=== PATIENT | male | born 1945 | race American Indian/Alaskan Native ===

== ENCOUNTER 2016-10-26 05:14 | Emergency (ER) | payer MEDICARE ==
[2016-10-26 06:56] VITALS: BP 180/82
--- NOTE | 2016-10-26 07:38 | Emergency Department Report ---
HPI - General Chief Complaint: Medical Clearance Time Seen by Provider: 10/26/16 07:25 - HPI HPI: Room 18 The patient is a 71-year-old male presenting with a chief complaint of left foot pain. The patient states she has a history of gout but has not had an attack in approximately 3 years. The patient states last night at approximate 21:00 developed pain in the dorsum of his left foot and heel consistent with previous gouty arthritis attacks. The patient states he took a Percocet for the pain comes and goes. The patient currently gives his pain a score of 8/10 Location: Left foot Duration: Intermittent since 21:00 last night Quality: Pain Severity: 8/10 Modifying factors: [see above] Context: [see above] Mode of transportation: The patient drove himself to the emergency department and there are no visitors present ED Past Medical Hx - Past Medical History Previous Medical History?: Yes Hx Hypertension: Yes (10 YRS) Hx Diabetes: Yes (10YRS) Hx GERD: Yes Hx Renal Disease: Yes Hx Headaches / Migraines: Yes (MIGRAINES ) - Surgical History Past Surgical History?: Yes Additional Surgical History: FISTULA RIGHT WRIST - Family History Family history: no significant - Social History Smoking Status: Former Smoker (none 2.5 years) Substance Use Type: Alcohol (occasional) - Medications Home Medications: Home Medications Medication Instructions Recorded Confirmed Last Taken Type Allopurinol [Zyloprim] 300 mg PO QDAY 05/17/16 05/28/16 05/27/16 11:00 History Carvedilol [Coreg] 25 mg PO BID 05/17/16 05/28/16 05/28/16 06:00 History Furosemide [Lasix TAB] 40 mg PO BID 05/17/16 05/28/16 05/27/16 11:00 History Gabapentin [Gralise] 300 mg PO QID 05/17/16 05/28/16 05/27/16 11:00 History Insulin NPH, Human [NovoLIN N] 50 unit SQ BID 05/17/16 05/28/16 05/27/16 11:00 History Loperamide [Imodium] 2 mg PO QDAY 05/17/16 05/17/16 Unknown History Metoprolol [Lopressor TAB] 100 mg PO QDAY 05/17/16 05/28/16 05/28/16 06:00 History Pravastatin Sodium [Pravastatin] 40 mg PO QDAY 05/17/16 05/28/16 05/26/16 History Quinapril HCl 40 mg PO QDAY 05/17/16 05/28/16 05/28/16 06:00 History Ranitidine HCl [Heartburn Relief] 150 mg PO QDAY 05/17/16 05/28/16 05/28/16 06: 00 History cloNIDine [Catapres] 0.1 mg PO BID 05/17/16 05/28/16 05/28/16 06:00 History glipiZIDE [Glucotrol] 10 mg PO QDAY 05/17/16 05/28/16 05/27/16 11:00 History Aspirin [Adult Low Dose Aspirin EC] 2 tab PO DAILY 05/28/16 05/28/16 05/27/16 11 :00 History HYDROcodone/APAP 7.5-325 [[place] 1 each PO Q6HR PRN #40 tablet 05/28/16 Unknown Rx 7.5/325] Oxycodone HCl/Acetaminophen 1 each PO Q6HR PRN #50 tablet 05/28/16 Unknown Rx [Percocet 7.5/325 mg] Colchicine 0.6 mg PO QDAY #20 capsule 10/26/16 Unknown Rx predniSONE [Deltasone] 40 mg PO QDAY #10 tab 10/26/16 Unknown Rx ED Review of Systems ROS: Stated complaint: GOUT Other details as noted in HPI Physical Exam - Physical Exam Vital Signs: Vital Signs 10/26/16 10/26/16 05:20 06:47 Temperature 97.4 F L Pulse Rate 83 73 Respiratory 20 20 Rate Blood Pressure 195/96 Blood Pressure 180/82 [Left] O2 Sat by Pulse 100 98 Oximetry ED Course Vital Signs 10/26/16 10/26/16 05:20 06:47 Temperature 97.4 F L Pulse Rate 83 73 Respiratory 20 20 Rate Blood Pressure 195/96 Blood Pressure 180/82 [Left] O2 Sat by Pulse 100 98 Oximetry - Consultations Consultation #1: 10/26/16 07:36 Nephrology paged 10/26/16 07:[address] Mustafa- recommends initiating prednisone 40 mg daily for 5 days and culture seen and having patient follow up in one week. ED Medical Decision Making - Differential Diagnosis gouty arthritis, neuropathy Critical care attestation.: If time is entered above; I have spent that time in minutes in the direct care of this critically ill patient, excluding procedure time. ED Disposition Clinical Impression: Left foot pain, Gouty arthritis, Neuropathy Disposition: DISCHARGED TO HOME OR SELFCARE Is pt being admited?: No Does the pt Need Aspirin: No Condition: Stable Instructions: Arthralgia (ED) Additional Instructions: Return to the emergency department immediately should you develop worsening symptoms, fever, inability to tolerate food or liquid or any other concerns. Prescriptions: Colchicine 0.6 mg PO QDAY #20 capsule predniSONE [Deltasone] 40 mg PO QDAY #10 tab Referrals: PRIMARY CARE, [Primary Care Provider] - 3-5 Days OLVIN OLMSTEAD MD [Staff Physician] - 3-5 Days Time of Disposition: 07:55
[2016-10-26] MEDS ORDERED: DELTASONE PO ONE (07:51)
[2016-10-26] MEDS ORDERED: COLCRYS PO ONE (08:30)
== END 2016-10-26 08:20 | disposition home or self-care (01) ==
LOC: ED 05:14
DX: M79.672 Pain in left foot (principal); M10.9 Gout, unspecified; G62.9 Polyneuropathy, unspecified; I10 Essential (primary) hypertension; E11.9 Type 2 diabetes mellitus without complications; G43.909 Migraine, unspecified, not intractable, without status migrainosus; N28.9 Disorder of kidney and ureter, unspecified; Z87.891 Personal history of nicotine dependence; Z79.82 Long term (current) use of aspirin
CPT/HCPCS: 99283; J7512

== ENCOUNTER 2016-11-26 14:48 | Outpatient (CLI) | payer MEDICARE ==
--- NOTE | 2016-11-26 15:45 | XRay Report ---
Chest 2 views. Findings: The heart is mildly enlarged with normal pulmonary vascularity. The lungs are clear. There is mild elevation of the right hemidiaphragm. There is uncoiling of the thoracic aorta. No pleural fluid is seen. Impression: No acute cardiopulmonary findings.
== END 2016-11-26 14:49 | disposition home or self-care (01) ==
LOC: XRAY 14:48
PROVIDERS: ATTEND Internal Medicine Nephrology
DX: N18.5 Chronic kidney disease, stage 5 (principal); I51.7 Cardiomegaly; Q79.1 Other congenital malformations of diaphragm
CPT/HCPCS: 71020

== ENCOUNTER 2016-12-13 10:29 | Outpatient (CLI) | payer MEDICARE ==
--- NOTE | 2016-12-13 17:10 | Vascular Lab Report ---
FISTULA DUPLEX EXAM: REASON FOR EXAM: AVF malfunction with ESRD. NOTE: THE FISTULA IS LOCATED IN THE right UPPER EXTREMITY. COMMENTS ON THE FISTULA: This is a radial artery inflow to cephalic vein outlflow fistula. Morphologicaly, there is no large pseudoaneurysms. There is high just proximal to the anastomosis velocity gradient to suggest focal stenosis. COMMENTS ON THE INFLOW: The inflow velocity is 5 98 cm/s which is high. The radial artery is 228 cm/s which is adequate. COMMENTS ON THE OUTFLOW: The venous outflow is 144 cm/s which is adequate. The volume is 322- 772 mL/min which is marginal to within normal limits. IMPRESSION: Focal stenosis noted just proximal to the anastomosis. This may represent a retained valve.. The volume passing through the fistula is marginal. Consider fistulogram with balloon angioplasty to correct for retained valve
== END 2016-12-13 10:30 | disposition home or self-care (01) ==
LOC: VAS 10:29
PROVIDERS: ATTEND Radiology Diagnostic Radiology
DX: I12.0 Hypertensive chronic kidney disease with stage 5 chronic kidney disease or end stage renal disease (principal); N18.6 End stage renal disease; E11.21 Type 2 diabetes mellitus with diabetic nephropathy; T82.590D Other mechanical complication of surgically created arteriovenous fistula, subsequent encounter; I70.8 Atherosclerosis of other arteries
CPT/HCPCS: 93990

== ENCOUNTER 2017-02-05 09:28 | Day surgery (SDC) | payer MEDICARE ==
[~2017-02-05 09:28] MED LIST: ANCEF/STERILE WATER 2 GM/20 ML 2 GM/20 ML SYRINGE IV NR; NACL 0.9% 1000 ML 1,000 ML IV SCH
[2017-02-05] MEDS ORDERED: ROBINUL ONE (09:30)
[2017-02-05] MEDS ORDERED: SUBLIMAZE ONE (09:36)
[2017-02-05] MEDS ORDERED: XYLOCAINE MPF 2% ONE (09:37)
[2017-02-05] MEDS ORDERED: DECADRON ONE (09:37)
[2017-02-05] MEDS ORDERED: ZOFRAN ONE (09:37)
[2017-02-05] MEDS ORDERED: DIPRIVAN 10 MG/ML IV ONE (09:37)
[2017-02-05] MEDS ORDERED: NACL 0.9% 100 ML ONE (09:38)
[2017-02-05] MEDS ORDERED: NEO SYNEPHRINE ONE (09:38)
[2017-02-05] MEDS ORDERED: PEPCID PO NR (10:00)
[2017-02-05] MEDS ORDERED: HEPARIN 10,000 UNITS/10 ML ONE (10:54)
[2017-02-05] MEDS ORDERED: MARCAINE 0.5% 30 ML INFILTRATI ONE (10:54)
[2017-02-05] MEDS ORDERED: NACL P/F VIAL (10 ML) 0 ML ONE (10:54)
[2017-02-05] MEDS ORDERED: NACL 0.9% 500 ML 500 ML ONE (10:54)
[2017-02-05] MEDS ORDERED: RIFADIN ONE (10:54)
[2017-02-05] MEDS ORDERED: D50W (25GM) IV ONE (11:09)
--- NOTE | 2017-02-05 11:11 | Anesthesia Consultation ---
Anesthesia Consult and Med Hx Date of service: 02/05/17 - Airway Anesthetic Teeth Evaluation: Partials ROM Head & Neck: Adequate Mental/Hyoid Distance: Inadequate Mallampati Class: Class III Intubation Access Assessment: Possibly Difficult - Pulmonary Exam CTA: Yes - Cardiac Exam Cardiac Exam: RRR - Pre-Operative Health Status ASA Pre-Surgery Classification: ASA3 Proposed Anesthetic Plan: General - Pulmonary Hx Smoking: Yes (CIGARETTES 1 PPD FOR 50 YRS, QUIT IN 2013) Hx Sleep Apnea: Yes - Cardiovascular System Hx Hypertension: Yes (10 YRS, DR. PLATT- PCP) Hx Peripheral Vascular Disease: Yes (smoking and DM related) - Central Nervous System Hx Neuromuscular Disorder: Yes (neuropathy R>L) Hx Psychiatric Problems: No - Gastrointestinal Hx Gastroesophageal Reflux Disease: Yes (controlled with meds) - Endocrine Hx Renal Disease: Yes (CKD stage 4) Hx End Stage Renal Disease: Yes Hx Liver Disease: No Hx Insulin Dependent Diabetes: Yes - Hematic Hx Anemia: Yes (GETS IRON INJECTIONS) Hx Sickle Cell Disease: No - Other Systems Hx Alcohol Use: Yes (BEER) Hx Substance Use: No Hx Cancer: Yes (PROSTATE ) Hx Obesity: No
--- NOTE | 2017-02-05 11:12 | Anesthesia Day of Surgery ---
Anesthesia Day of Surgery - Day of Surgery Patient Examined: Yes Patient H&P Reviewed: Yes Patient is NPO: Yes Beta Blockers: Yes
[2017-02-05] MEDS ORDERED: VERSED ONE (11:13)
[2017-02-05 11:34] LABS: Basophils % (Auto) 0.2 % (0.0-1.8); Eosinophils % (Auto) 3.8 % (0.0-4.3); Hematocrit 34.9 % (35.5-45.6); Hemoglobin 10.8 gm/dl (11.8-15.2); Mean Corpuscular HGB Conc 31 % (32-34); Mean Corpuscular Hemoglobin 31 pg (28-32); Mean Corpuscular Volume 100 fl (84-94); Platelet Count 219 K/mm3 (140-440); Red Cell Distribution Width 18.6 % (13.2-15.2); White Blood Count 12.1 K/mm3 (4.5-11.0)
[2017-02-05 11:45] LABS: BUN/Creatinine Ratio 7.64; Calcium 8.9 mg/dL (8.4-10.2); Chloride 98.6 mmol/L (98-107); Potassium 4.7 mmol/L (3.6-5.0)
[2017-02-05] MEDS ORDERED: HEPARIN 10,000 UNITS/10 ML 2,000 UNIT in NACL 0.9% 500 ML 500 ML IR ONE (12:22)
[2017-02-05] MEDS ORDERED: MARCAINE 0.5% INFILTRATI ONE ×2 (12:22)
[2017-02-05] MEDS ORDERED: NACL 0.9% IR ONE (12:22)
--- NOTE | 2017-02-05 13:41 | Operative Report ---
Operative Report Operative Report: Date of Procedure: 02/05/2017 Pre-operative Diagnosis: Complications of Dialysis Access Post-operative Diagnosis: Same Procedure(s): 1. Revision with Elevation of Right Usha Fistula With Bovine Patch Angioplasty Surgeon: Woody Borrero M.D. Horticulturalist: Kulwinder Anesthesia: Gen. endotracheal anesthesia EBL: Minimal Counts: Correct Complications: None Condition: Stable Findings: Successful revision of arterial inflow of right Usha fistula with significantly improved thrill in the fistula. Specimen: None Indication: The patient is 71-year-old male with a history of end-stage renal disease currently on hemodialysis through a permacath. He creation of a right Usha fistula and has had multiple endovascular procedures performed however it is unable to be accessed secondary to his depth as well as a stenosis just distal to the arterial anastomosis. He is in need of revision of the fistula as well as elevation. He was given the risks, benefits, and alternative procedures and consented to procedure. Description of Procedure: The patient was brought to the operating room and laid in supine position. After general endotracheal anesthesia was achieved his right arm was prepped and draped in normal sterile fashion. Longitudinal incision was created from the arterial anastomosis to the mid forearm centered over the fistula. The fistula was dissected out circumferentially ensuring to suture ligate and divide all side branches. I then used an angled DeBakey clamp to clamp the venous outflow as well as the arterial inflow just distal to the anastomosis using an 11 blade and Gayle scissors to open the fistula across a thickened area with stenosis. I then closed the venotomy using a bovine pericardial patch and 2 6-0 Prolene in running fashion. After closure I released the clamps off full in the fistula which had an excellent thrill. I then created a subcutaneous flap, just below the dermal layer, on the medial aspect of the incision. I'll keep hemostasis within the wound using quick clot. The wound was administered as a Marcaine. I then placed a fistula within the subcutaneous flap and then closed the incision in 2 layers using 3-0 Vicryl running fashion and the deep dermal layer and an a 4 Monocryl in a running fashion subcuticular. The wound was then dressed with Dermabond. The patient tolerated the procedure well. All sponge, needle, and history counts were correct. The patient was taken to the recovery area in stable condition.
--- NOTE | 2017-02-05 13:45 | Short Stay Summary ---
Short Stay Documentation Date of service: 02/05/17 Narrative H&P: See H&P - History H&P: obtained from office - Allergies and Medications Current Medications: Allergies atorvastatin calcium [From Lipitor] Allergy (Verified 05/17/16 15:47) muscle stiffness Home Medications Medication Instructions Recorded Confirmed Last Taken Type Allopurinol [Zyloprim] 300 mg PO QDAY 05/17/16 02/05/17 02/04/17 History Furosemide [Lasix TAB] 40 mg PO BID 05/17/16 02/05/17 02/04/17 History Gabapentin [Gralise] 600 mg PO QDAY 05/17/16 02/05/17 02/04/17 History Metoprolol [Lopressor TAB] 50 mg PO BID 05/17/16 02/05/17 02/05/17 History Ranitidine HCl [Heartburn Relief] 150 mg PO BID 05/17/16 02/05/17 02/04/17 History glipiZIDE [Glucotrol] 10 mg PO BID 05/17/16 02/05/17 02/04/17 History Insulin Detemir [Levemir Flextouch] 30 unit SQ BID 01/31/17 02/05/17 02/04/17 History Sertraline [Zoloft] 50 mg PO QDAY 01/31/17 02/05/17 02/04/17 History Vit B Cplx #11/FA/C/Biot/Zn Ox 1 each PO QDAY 01/31/17 02/05/17 02/04/17 History [Dialyvite with Zinc Tablet] amLODIPine [Norvasc] 5 mg PO DAILY 01/31/17 02/05/17 02/04/17 History Active Medications Famotidine (Pepcid) 20 mg PO PREOP NR Stop: 02/05/17 23:00 Last Admin: 02/05/17 11:26 Dose: 20 mg Cefazolin Sodium (Ancef/Sterile Water 2 Gm/20 Ml) 2 gm in 20 mls @ 80 mls/hr IV PREOP NR PRN Reason: Protocol Stop: 02/05/17 23:59 Sodium Chloride (Nacl 0.9% 1000 Ml) 1,000 mls @ 42 mls/hr IV DIRECT GOLDIE Stop: 02/05/17 23:59 Last Admin: 02/05/17 11:26 Dose: 42 mls/hr - Brief post op/procedure progress note Date of procedure: 02/05/17 Pre-op diagnosis: Complications of Dialysis Access Post-op diagnosis: same Procedure: 1. Revision with Elevation of Right Usha Fistula With Bovine Patch Angioplasty Anesthesia: JEET Surgeon: BIANKA GRIFFIN Estimated blood loss: minimal Pathology: none Condition: stable - Disposition Condition at discharge: Good Short Stay Discharge Plan Activity: other (no heavy lifting with left arm) Wound: open to air, keep clean and dry, other (okay to wash the wound with soap and water but do not soak in water) Follow up with: BIANKA GRIFFIN MD [Staff Physician] - 14 Days Prescriptions: HYDROcodone/APAP 7.5-325 [[place] 7.5/325] 1 each PO Q6HR PRN #60 tablet PRN Reason: Pain
--- NOTE | 2017-02-05 13:47 | Post Anesthesia Evaluation ---
- Post Anesthesia Evaluation Patient Participated: Yes Airway Patent: Yes Stable Respiratory Function: Yes Nausea/Vomiting: No Temp > 96.8F: Yes Pain Manageable: Yes Adequeate Hydration: Yes Anesthesia Complications: No Block Receding Appropriately: Not Applicable Patient on Ventilator: No
[2017-02-05 14:26] VITALS: BP 150/68
== END 2017-02-05 14:45 | disposition home or self-care (01) ==
LOC: OR 09:28
PROVIDERS: ATTEND Surgery Vascular Surgery
DX: T82.858A Stenosis of other vascular prosthetic devices, implants and grafts, initial encounter (principal); E11.22 Type 2 diabetes mellitus with diabetic chronic kidney disease; I12.0 Hypertensive chronic kidney disease with stage 5 chronic kidney disease or end stage renal disease; N18.6 End stage renal disease; K21.9 Gastro-esophageal reflux disease without esophagitis; D64.9 Anemia, unspecified; E11.40 Type 2 diabetes mellitus with diabetic neuropathy, unspecified; Z87.891 Personal history of nicotine dependence; Z72.89 Other problems related to lifestyle; Z85.46 Personal history of malignant neoplasm of prostate; Z88.8 Allergy status to other drugs, medicaments and biological substances; Z79.4 Long term (current) use of insulin; Z79.899 Other long term (current) drug therapy; Y83.2 Surgical operation with anastomosis, bypass or graft as the cause of abnormal reaction of the patient, or of later complication, without mention of misadventure at the time of the procedure
CPT/HCPCS: 36415; 36832; 80048; 82962; 85025; C1768; J0690; J1100; J1644; J2250; J2370; J2405; J2704; J3010; J7030; J7040; J3490

== ENCOUNTER 2018-09-23 15:48 | Emergency (ER) | payer MEDICARE ==
--- NOTE | 2018-09-23 17:01 | Emergency Department Report ---
ED Lower Extremity HPI - General Chief Complaint: Wound/Laceration Stated Complaint: TOES BLEEDING FROM EMPUTATION Time Seen by Provider: 09/23/18 16:39 Source: patient Mode of arrival: Ambulatory Limitations: No Limitations - History of Present Illness Initial Comments: This is a 73-year-old gentleman whom I have evaluated in the past. Patient typically gets dialysis Saturday, Saturday, Saturday. He last received dialysis yesterday, and reports it was of normal length and duration. He has a distant history of right toe amputations, secondary to neuropathy, and reports that these amputations were done last year, December He reports that today, he said bloody serosanguineous discharge which is painless from the medial superior aspect of the right foot. There is minimal surrounding redness. There is no streaking. No fevers or chills. No trauma. He is concerned that he may have an infection. He contacted his private residential mental health worker, and he indicated they could follow him up tomorrow morning. He denies other complaints. MD Complaint: other -: Gradual, hour(s) Injury: Foot: Right Type of Injury: unknown Worsens With: nothing Associated Symptoms: ambulatory - Related Data Home Medications Medication Instructions Recorded Confirmed Last Taken Allopurinol [Zyloprim] 300 mg PO QDAY 05/17/16 02/05/17 02/04/17 Furosemide [Lasix TAB] 40 mg PO BID 05/17/16 02/05/17 02/04/17 Gabapentin [Gralise] 600 mg PO QDAY 05/17/16 02/05/17 02/04/17 Metoprolol [Lopressor TAB] 50 mg PO BID 05/17/16 02/05/17 02/05/17 Ranitidine HCl [Heartburn Relief] 150 mg PO BID 05/17/16 02/05/17 02/04/17 glipiZIDE [Glucotrol] 10 mg PO BID 05/17/16 02/05/17 02/04/17 B Complex 11/Folic/C/Biot/Zinc 1 each PO QDAY 01/31/17 02/05/17 02/04/17 [Dialyvite with Zinc Tablet] Insulin Detemir [Levemir Flextouch] 30 unit SQ BID 01/31/17 02/05/17 02/04/17 Sertraline [Zoloft] 50 mg PO QDAY 01/31/17 02/05/17 02/04/17 amLODIPine [Norvasc] 5 mg PO DAILY 01/31/17 02/05/17 02/04/17 Previous Rx's Medication Instructions Recorded Last Taken Type HYDROcodone/APAP 7.5-325 [[place] 1 each PO Q6HR PRN #60 tablet 02/05/17 Unknown Rx 7.5/325] Clindamycin HCl 300 mg PO Q6HR #20 capsule 09/23/18 Unknown Rx Allergies Allergy/AdvReac Type Severity Reaction Status Date / Time atorvastatin calcium Allergy muscle Verified 05/17/16 15:47 [From Lipitor] stiffness ED Review of Systems ROS: Stated complaint: TOES BLEEDING FROM EMPUTATION Other details as noted in HPI Constitutional: denies: fever Eyes: denies: eye discharge Respiratory: denies: cough Cardiovascular: denies: chest pain Genitourinary: denies: dysuria Musculoskeletal: denies: arthralgia, myalgia Skin: change in color Neurological: denies: weakness ED Past Medical Hx - Past Medical History Previous Medical History?: Yes Hx Hypertension: Yes (10 YRS, DR. PLATT- PCP) Hx Diabetes: Yes (FOR 10YRS) Hx Deep Vein Thrombosis: Yes (RIGHT LEG IN 2013 AND 2001) Hx GERD: Yes Hx Liver Disease: No Hx Renal Disease: Yes (CKD stage 4) Hx Sickle Cell Disease: No Hx Headaches / Migraines: Yes (MIGRAINES ) Hx HIV: No - Surgical History Past Surgical History?: Yes Additional Surgical History: FISTULA RIGHT WRIST. 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/2017 - Social History Smoking Status: Former Smoker Substance Use Type: Alcohol - Medications Home Medications: Home Medications Medication Instructions Recorded Confirmed Last Taken Type Allopurinol [Zyloprim] 300 mg PO QDAY 05/17/16 02/05/17 02/04/17 History Furosemide [Lasix TAB] 40 mg PO BID 05/17/16 02/05/17 02/04/17 History Gabapentin [Gralise] 600 mg PO QDAY 05/17/16 02/05/17 02/04/17 History Metoprolol [Lopressor TAB] 50 mg PO BID 05/17/16 02/05/17 02/05/17 History Ranitidine HCl [Heartburn Relief] 150 mg PO BID 0902/05/17 02/04/17 History glipiZIDE [Glucotrol] 10 mg PO BID 05/17/16 02/05/17 02/04/17 History B Complex 11/Folic/C/Biot/Zinc 1 each PO QDAY 01/31/17 02/05/17 02/04/17 History [Dialyvite with Zinc Tablet] Insulin Detemir [Levemir Flextouch] 30 unit SQ BID 01/31/17 02/05/17 02/04/17 History Sertraline [Zoloft] 50 mg PO QDAY 01/31/17 02/05/17 02/04/17 History amLODIPine [Norvasc] 5 mg PO DAILY 01/31/17 02/05/17 02/04/17 History HYDROcodone/APAP 7.5-325 [[place] 1 each PO Q6HR PRN #60 tablet 02/05/17 Unknown Rx 7.5/325] Clindamycin HCl 300 mg PO Q6HR #20 capsule 09/23/18 Unknown Rx ED Physical Exam - General Limitations: No Limitations General appearance: alert, in no apparent distress - Head Head exam: Present: atraumatic, normocephalic - Eye Eye exam: Present: normal appearance, EOMI. Absent: nystagmus - ENT ENT exam: Present: normal exam, normal orophraynx, mucous membranes moist, normal external ear exam - Neck Neck exam: Present: normal inspection, full ROM. Absent: tenderness, meningismus - Respiratory Respiratory exam: Present: normal lung sounds bilaterally. Absent: respiratory distress - Cardiovascular Cardiovascular Exam: Present: regular rate, normal rhythm, normal heart sounds. Absent: bradycardia, tachycardia, irregular rhythm, systolic murmur, diastolic murmur, rubs, gallop - GI/Abdominal GI/Abdominal exam: Present: soft. Absent: distended, tenderness, guarding, rebound, rigid, pulsatile mass - Rectal Rectal exam: Present: deferred - Extremities Exam Extremities exam: Present: normal inspection, other (there is a right distal dorsal wrist dialysis access graft, with no redness, pus or streaking. On the dorsal medial aspect of the right foot, there is minimal erythema, with no streaking or crepitus. There is fluctuance noted on the anterior medial aspect of the right foot, and it is draining seropurulent discharge.). Absent: tenderness - Back Exam Back exam: Present: normal inspection, full ROM. Absent: tenderness, CVA tenderness (R), paraspinal tenderness, vertebral tenderness - Neurological Exam Neurological exam: Present: alert, other (Extraocular movements intact. Tongue midline. No facial droop. Facial sensation intact to light touch in the V1, V2, V3 distribution bilaterally. 5 and 5 strength in 4 extremities.. Sensation is intact to light touch in 4 extremities.). Absent: motor sensory deficit - Psychiatric Psychiatric exam: Present: normal affect, normal mood - Skin Skin exam: Present: warm, erythema ED Course Vital Signs 09/23/18 09/23/18 15:49 16:52 Temperature 97.4 F L Pulse Rate 68 Respiratory 18 18 Rate Blood Pressure 132/67 O2 Sat by Pulse 98 99 Oximetry - Reevaluation(s) Reevaluation #1: 09/23/18 17:04 Differential diagnosis, including but not limited to, cellulitis, abscess Assessment and plan: 73-year-old gentleman with dorsal foot cellulitis, and evidence of seropurulent discharge, already draining. Patient is afebrile with reassuring vital signs. Gentle manual pressure was applied to the fluctuant area of the foot, and approximately 10-15 mL of pus was expressed. Nursing team will reapply wound care dressing, discuss wound care instructions with the patient, and we will start him on clindamycin. He is afebrile with reassuring vital signs, and reports she has the ability to follow up with his outpatient residential mental health worker in the next few days. He reports that he is reliable to follow-up. Return precautions have been reviewed. Patient is appropriate for trial of oral outpatient antibiotic therapy, close outpatient follow-up with his private residential mental health worker. He is not clinically fluid overloaded or volume overloaded, and his physical exam is not consistent with compartment syndrome or lymphangitis. ED Lower Extremity MDM - Lab Data Vital Signs 09/23/18 09/23/18 15:49 16:52 Temperature 97.4 F L Pulse Rate 68 Respiratory 18 18 Rate Blood Pressure 132/67 O2 Sat by Pulse 98 99 Oximetry Critical care attestation.: If time is entered above; I have spent that time in minutes in the direct care of this critically ill patient, excluding procedure time. ED Disposition Clinical Impression: Cellulitis of right foot Disposition: DC-01 TO HOME OR SELFCARE Is pt being admited?: No Does the pt Need Aspirin: No Condition: Good Instructions: Cellulitis (ED) Additional Instructions: Continue outpatient medications. Take the antibiotics as directed. Inspect foot wound at least once every 8-12 hours on a daily basis. Keep dry and covered. Wound may be washed with gentle soap and water once to twice daily. Follow-up with your private residential mental health worker within the next 3-5 days for repeat checkup/evaluation. Alternatively, patient may follow-up with the listed general surgeon, or wound care center for outpatient follow-up. Return to the ER right away with worsening redness, streaking, fevers, chills, lethargy, severe pain, new, worsening or different symptoms. Referrals: COBY GUDINO MD [Staff Physician] - 3-5 Days [facility] [Outside] - 3-5 Days
[2018-09-23] MEDS ORDERED: CLEOCIN PO ONE (17:06)
[2018-09-23 17:19] VITALS: BP 130/67
== END 2018-09-23 17:17 | disposition home or self-care (01) ==
LOC: ED 15:48
DX: L03.115 Cellulitis of right lower limb (principal); I10 Essential (primary) hypertension; E11.9 Type 2 diabetes mellitus without complications; K21.9 Gastro-esophageal reflux disease without esophagitis; G43.909 Migraine, unspecified, not intractable, without status migrainosus; Z87.891 Personal history of nicotine dependence; Z88.8 Allergy status to other drugs, medicaments and biological substances

== ENCOUNTER 2019-01-29 11:10 | Observation (INO) | payer MEDICARE ==
--- NOTE | 2019-01-29 11:19 | Emergency Department Report ---
ED Shortness of Breath HPI - General Stated Complaint: CHEST PAIN Time Seen by Provider: 01/29/19 11:15 - History of Present Illness Initial Comments: Patient is a 73-year-old male presents to emergency room with complaints of shortness of breath and chest pain. Patient states he was also palpitations. Patient states he felt like his heart was beating out of his chest. EMS brought the patient to the ER. EMS states that he was in SVT and they gave 6 of adenosine and his rhythm converted. Patient states after they give that medication all the symptoms resolved. MD Complaint: shortness of breath -: Sudden Severity: severe Consistency: now resolved Improves With: oxygen, medication Worsens With: exertion, movement, inspiration Associated Symptoms: chest pain, palpitations Treatments Prior to Arrival: oxygen, other (adenosine) - Related Data Home Oxygen Therapy: No Home Medications Medication Instructions Recorded Confirmed Last Taken Allopurinol [Zyloprim] 300 mg PO QDAY 05/17/16 01/29/19 02/04/17 Furosemide [Lasix TAB] 40 mg PO BID 05/17/16 01/29/19 02/04/17 Ranitidine HCl [Heartburn Relief] 150 mg PO BID 05/17/16 01/29/19 02/04/17 B Complex 11/Folic/C/Biot/Zinc 1 each PO QDAY 01/31/17 01/29/19 02/04/17 [Dialyvite with Zinc Tablet] Sertraline [Zoloft] 50 mg PO QDAY 01/31/17 01/29/19 02/04/17 Clopidogrel [Plavix] 75 mg PO QDAY 01/29/19 01/29/19 Unknown Ergocalciferol (Vitamin D2) 2,000 unit PO DAILY 01/29/19 01/29/19 Unknown [Vitamin D2] Metoprolol [Lopressor] 25 mg PO BID 01/29/19 01/29/19 Unknown Pravastatin [Pravachol] 40 mg PO DAILY 01/29/19 01/29/19 Unknown Pregabalin [Lyrica] 50 mg PO BID 01/29/19 01/29/19 Unknown amLODIPine [Norvasc] 10 mg PO DAILY 01/29/19 01/29/19 Unknown Allergies Allergy/AdvReac Type Severity Reaction Status Date / Time atorvastatin calcium Allergy muscle Verified 05/17/16 15:47 [From Lipitor] stiffness ED Review of Systems ROS: Stated complaint: CHEST PAIN Other details as noted in HPI Constitutional: denies: chills, fever Eyes: denies: eye pain, eye discharge, vision change ENT: denies: ear pain, throat pain Respiratory: shortness of breath, SOB with exertion, SOB at rest. denies: cough, wheezing Cardiovascular: chest pain, palpitations, dyspnea on exertion Endocrine: no symptoms reported Gastrointestinal: denies: abdominal pain, nausea, diarrhea Genitourinary: denies: urgency, dysuria Musculoskeletal: denies: back pain, joint swelling, arthralgia Skin: denies: rash, lesions Neurological: denies: headache, weakness, paresthesias Psychiatric: denies: anxiety, depression Hematological/Lymphatic: denies: easy bleeding, easy bruising ED Past Medical Hx - Past Medical History Previous Medical History?: Yes Hx Hypertension: Yes (10 YRS, DR. PLATT- PCP) Hx Diabetes: Yes (FOR 10YRS) Hx Deep Vein Thrombosis: Yes (RIGHT LEG IN 2013 AND 2001) Hx GERD: Yes Hx Liver Disease: No Hx Renal Disease: Yes (CKD stage 4) Hx Sickle Cell Disease: No Hx Headaches / Migraines: Yes (MIGRAINES ) Hx HIV: No - Surgical History Additional Surgical History: FISTULA RIGHT WRIST. 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/2017 - Social History Smoking Status: Former Smoker Substance Use Type: Alcohol - Medications Home Medications: Home Medications Medication Instructions Recorded Confirmed Last Taken Type Allopurinol [Zyloprim] 300 mg PO QDAY 05/17/16 01/29/19 02/04/17 History Furosemide [Lasix TAB] 40 mg PO BID 05/17/16 01/29/19 02/04/17 History Ranitidine HCl [Heartburn Relief] 150 mg PO BID 05/17/16 01/29/19 02/04/17 History B Complex 11/Folic/C/Biot/Zinc 1 each PO QDAY 01/31/17 01/29/19 02/04/17 History [Dialyvite with Zinc Tablet] Sertraline [Zoloft] 50 mg PO QDAY 01/31/17 01/29/19 02/04/17 History Clopidogrel [Plavix] 75 mg PO QDAY 01/29/19 01/29/19 Unknown History Ergocalciferol (Vitamin D2) 2,000 unit PO DAILY 01/29/19 01/29/19 Unknown History [Vitamin D2] Metoprolol [Lopressor] 25 mg PO BID 01/29/19 01/29/19 Unknown History Pravastatin [Pravachol] 40 mg PO DAILY 01/29/19 01/29/19 Unknown History Pregabalin [Lyrica] 50 mg PO BID 01/29/19 01/29/19 Unknown History amLODIPine [Norvasc] 10 mg PO DAILY 01/29/19 01/29/19 Unknown History ED Physical Exam - General General appearance: alert, in no apparent distress - Head Head exam: Present: atraumatic, normocephalic - Eye Eye exam: Present: normal appearance, PERRL Pupils: Present: normal accommodation - ENT ENT exam: Present: mucous membranes moist - Neck Neck exam: Present: normal inspection - Respiratory Respiratory exam: Present: normal lung sounds bilaterally. Absent: respiratory distress - Cardiovascular Cardiovascular Exam: Present: regular rate, normal rhythm. Absent: bradycardia, tachycardia, systolic murmur, diastolic murmur, rubs, gallop - GI/Abdominal GI/Abdominal exam: Present: soft, normal bowel sounds. Absent: distended, tenderness, guarding, rebound - Rectal Rectal exam: Present: deferred - Extremities Exam Extremities exam: Present: normal inspection - Back Exam Back exam: Present: normal inspection - Neurological Exam Neurological exam: Present: alert, oriented X3 - Psychiatric Psychiatric exam: Present: normal affect, normal mood - Skin Skin exam: Present: warm, dry, intact, normal color. Absent: rash ED Course Vital Signs 01/29/19 01/29/19 01/29/19 11:17 11:21 12:20 Temperature 97.8 F Pulse Rate 84 81 Respiratory 13 13 22 Rate Blood Pressure 141/77 147/79 Blood Pressure 141/77 [Left] O2 Sat by Pulse 98 98 Oximetry 01/29/19 01/29/19 01/29/19 12:30 12:46 13:00 Temperature Pulse Rate 77 74 71 Respiratory 12 16 13 Rate Blood Pressure 147/79 142/81 154/82 Blood Pressure [Left] O2 Sat by Pulse 100 100 100 Oximetry 01/29/19 01/29/19 01/29/19 13:15 13:30 13:45 Temperature Pulse Rate 71 66 65 Respiratory 19 10 L 12 Rate Blood Pressure 143/79 150/79 142/78 Blood Pressure [Left] O2 Sat by Pulse 100 99 99 Oximetry 01/29/19 14:00 Temperature Pulse Rate 64 Respiratory 11 L Rate Blood Pressure 145/80 Blood Pressure [Left] O2 Sat by Pulse 99 Oximetry - Reevaluation(s) Reevaluation #1: Patient Resting. Patient denies chest pain/shortness of breath. Patient on phototypesetting equipment monitor. Patient's heart rate normal. 01/29/19 11:50 Discussed all results with patient. Patient will be admitted to the hospitalist service. Patient agrees to plan of care. 01/29/19 12:12 - Consultations Consultation #1: Hospitalist consulted for admission. Hospitalist to admit patient. Hospitalist to assume care patient. 01/29/19 12:12 ED Medical Decision Making - Lab Data Result diagrams: 01/29/19 11:32 01/29/19 11:25 - EKG Data -: EKG Interpreted by Pr EKG shows normal: sinus rhythm, intervals, QRS complexes, ST-T waves Rate: normal - EKG Data Interpretation: other (axis deviation) - Radiology Data Radiology results: report reviewed, image reviewed AP CHEST: HISTORY: Dyspnea Mild cardiomegaly end mild central pulmonary venous congestion are identified. The lungs are clear. No evidence for pneumonia, CHF or pneumothorax. Thoracic spondylosis is noted. IMPRESSION: Mild cardiomegaly and pulmonary venous congestion. No significant change since 06/30/18. - Medical Decision Making Patient is a 73-year-old male presents to the ER with complaints of chest pain shortness of breath. Patient was found initially to be in SVT and prior to arrival after being giving adenosine by EMS. Patient's labs unremarkable except for kidney function was consistent with end-stage renal disease. Patient also found to have elevated BNP consistent with CHF. Chest x-ray shows vascular congestion - Differential Diagnosis CHF. SVT. A. fib. Chest pain. Shortness of breath. Critical Care Time: Yes Critical care attestation.: If time is entered above; I have spent that time in minutes in the direct care of this critically ill patient, excluding procedure time. Critical Care Time: 35 minutes ED Disposition Clinical Impression: SVT (supraventricular tachycardia), SOB (shortness of breath), Palpitations, ESRD (end stage renal disease) on dialysis Chest pain Qualifiers: Chest pain type: unspecified Qualified Code(s): R07.9 - Chest pain, unspecified CHF exacerbation Qualifiers: Heart failure type: diastolic Qualified Code(s): I50.33 - Acute on chronic diastolic (congestive) heart failure Disposition: -09 OP ADMIT IP TO THIS HOSP Is pt being admited?: Yes Does the pt Need Aspirin: No Condition: Critical Time of Disposition: 12:14
[2019-01-29 11:52] LABS: Basophils % (Auto) 0.2 % (0.0-1.8); Eosinophils # (Auto) 0.3 K/mm3 (0.0-0.4); Eosinophils % (Auto) 3.3 % (0.0-4.3); Hematocrit 32.8 % (35.5-45.6); Hemoglobin 10.6 gm/dl (11.8-15.2); Lymphocytes # (Auto) 0.8 K/mm3 (1.2-5.4); Lymphocytes % (Auto) 7.8 % (13.4-35.0); Mean Corpuscular HGB Conc 32 % (32-34); Mean Corpuscular Volume 94 fl (84-94); Monocytes # (Auto) 0.9 K/mm3 (0.0-0.8); Monocytes % (Auto) 8.7 % (0.0-7.3); Platelet Count 273 K/mm3 (140-440); Red Blood Count 3.51 M/mm3 (3.65-5.03)
[2019-01-29 11:56] LABS: Red Cell Distribution Width 20.5 % (13.2-15.2)
--- NOTE | 2019-01-29 11:56 | XRay Report ---
AP CHEST: HISTORY: Dyspnea Mild cardiomegaly end mild central pulmonary venous congestion are identified. The lungs are clear. No evidence for pneumonia, CHF or pneumothorax. Thoracic spondylosis is noted. IMPRESSION: Mild cardiomegaly and pulmonary venous congestion. No significant change since 06/30/18.
[2019-01-29 12:05] LABS: Creatine Kinase MB 2.3 ng/mL (0.0-4.0)
[2019-01-29 12:06] LABS: Albumin 3.5 g/dL (3.9-5); Calcium 9.2 mg/dL (8.4-10.2)
--- NOTE | 2019-01-29 12:25 | History and Physical Report ---
History of Present Illness Chief complaint: My chest hurts, and my heart is pounding History of present illness: 73 YO Male with HTN, DM, HLD, ESRD on HD, DVT RLE, GERD, Migraine Headache presents to ED for evaluation. Pt states that he has experienced pain in his chest and chest palpitations over the past 1 day with acutely worsening symptoms over the past 6 hours. Pt states that pain is 4-6/10, substernal, nonradiating, not worsened with exertion, not relieved with rest, but associated with decreased exercise tolerance as well as palpitations. EMS notified, and upon arrival the patient was found to be in distress with Supraventricular Tachycardia. Pt treated with adenosine with conversion to normal sinus rhythm. Pt transported to [facility]. Pt seen and evaluated in ED and found to have Angina, as well as symptoms consistent with Diastolic CHF, and ESRD. PT admitted to telemetry. Cardiology team consulted in ED. Nephrology team consulted in ED. Pt denies fever, chills, NVD, Trauma, BRBPR, unintentional weight loss, night swl Past History Past Medical History: diabetes, DVT, ESRD, GERD, hypertension, hyperlipidemia Past Surgical History: Other (Toe amputation) Social history: . denies: smoking, alcohol abuse, prescription drug abuse Medications and Allergies Allergies Allergy/AdvReac Type Severity Reaction Status Date / Time atorvastatin calcium Allergy muscle Verified 05/17/16 15:47 [From Lipitor] stiffness Home Medications Medication Instructions Recorded Confirmed Last Taken Type Allopurinol [Zyloprim] 300 mg PO QDAY 05/17/16 01/29/19 02/04/17 History Furosemide [Lasix TAB] 40 mg PO BID 05/17/16 01/29/19 02/04/17 History Ranitidine HCl [Heartburn Relief] 150 mg PO BID 05/17/16 01/29/19 02/04/17 H istory B Complex 11/Folic/C/Biot/Zinc 1 each PO QDAY 01/31/17 01/29/19 02/04/17 History [Dialyvite with Zinc Tablet] Sertraline [Zoloft] 50 mg PO QDAY 01/31/17 01/29/19 02/04/17 History Clopidogrel [Plavix] 75 mg PO QDAY 01/29/19 01/29/19 Unknown History Ergocalciferol (Vitamin D2) 2,000 unit PO DAILY 01/29/19 01/29/19 Unknown History [Vitamin D2] Metoprolol [Lopressor] 25 mg PO BID 01/29/19 01/29/19 Unknown History Pravastatin [Pravachol] 40 mg PO DAILY 01/29/19 01/29/19 Unknown History Pregabalin [Lyrica] 50 mg PO BID 01/29/19 01/29/19 Unknown History amLODIPine [Norvasc] 10 mg PO DAILY 01/29/19 01/29/19 Unknown History Review of Systems Constitutional: no weight loss, no weight gain, no fever, no chills Ears, nose, mouth and throat: no ear pain, no ear discharge, no tinnitis, no decreased hearing, no nose pain Cardiovascular: chest pain, palpitations, high blood pressure, no orthopnea, no rapid/irregular heart beat, no edema, no lightheadedness, no paroxysmal no cturnal dyspnea, no claudication, no phlebitis Respiratory: no cough, no cough with sputum, no excessive sputum, no hemoptysis, no shortness of breath, no dyspnea on exertion Gastrointestinal: no abdominal pain, no nausea, no vomiting, no diarrhea, no constipation, no hematemesis Genitourinary Male: no flank pain, no discharge, no urinary frequency, no urinary hesitancy Rectal: no pain, no bleeding Musculoskeletal: no neck stiffness, no neck pain, no shooting arm pain, no low back pain Integumentary: no rash, no pruritis, no redness, no sores, no wounds Neurological: no transient paralysis, no paralysis, no weakness, no parathesias, no syncope Psychiatric: no anxiety, no memory loss, no change in sleep habits, no sleep disturbances, no insomnia, no hypersomnia Endocrine: no cold intolerance, no heat intolerance, no polyphagia, no excessive thirst, no polydipsia, no polyuria, no nocturia Hematologic/Lymphatic: no easy bruising, no easy bleeding, no lymphadenopathy, no lymphedema Allergic/Immunologic: no urticaria, no allergic rhinitis, no wheezing, no persistent infections, no angioedema Exam - Constitutional Vitals: Temp Pulse Resp BP Pulse Ox 97.8 F 84 13 141/77 98 01/29/19 11:17 01/29/19 11:17 01/29/19 11:21 01/29/19 11:17 01/29/19 11:21 General appearance: Present: mild distress - EENT Eyes: Present: PERRL ENT: hearing intact, clear oral mucosa - Neck Neck: Present: supple, normal ROM - Respiratory Respiratory effort: normal Respiratory: bilateral: CTA - Cardiovascular Rhythm: irregularly irregular Heart Sounds: Present: S1 & S2. Absent: rub, click - Extremities Extremities: pulses symmetrical, No edema Peripheral Pulses: within normal limits - Abdominal General gastrointestinal: Present: soft, non-tender, non-distended, normal bowel sounds Male genitourinary: Present: normal - Integumentary Integumentary: Present: clear, warm, dry, erythema (a) - Musculoskeletal Musculoskeletal: gait normal, strength equal bilaterally - Psychiatric Psychiatric: appropriate mood/affect, intact judgment & insight - Neurologic Neurologic: CNII-XII intact, moves all extremities Results - Labs CBC & Chem 7: 01/29/19 11:32 01/29/19 11:25 Labs: Abnormal lab results 01/29/19 01/29/19 01/29/19 Range/Units 11:25 11:25 11:32 RBC 3.51 L (3.65-5.03) M/mm3 Hgb 10.6 L (11.8-15.2) gm/dl Hct 32.8 L (35.5-45.6) % RDW 20.5 H (13.2-15.2) % Lymph % (Auto) 7.8 L (13.4-35.0) % [place] % (Auto) 8.7 H (0.0-7.3) % Lymph # 0.8 L (1.2-5.4) K/mm3 [place] # 0.9 H (0.0-0.8) K/mm3 Seg Neutrophils % 80.0 H (40.0-70.0) % Seg Neutrophils # 8.4 H (1.8-7.7) K/mm3 Potassium 5.3 H (3.6-5.0) mmol/L Carbon Dioxide 21 L (22-30) mmol/L BUN 30 H (9-20) mg/dL Creatinine 7.1 H (0.8-1.5) mg/dL Glucose 150 H (75-100) mg/dL Troponin T 0.242 H* (0.00-0.029) ng/mL NT-Pro-B Natriuret Pep 8286 H (0-900) pg/mL Albumin 3.5 L (3.9-5) g/dL Assessment and Plan - Patient Problems (1) ESRD (end stage renal disease) on dialysis Current Visit: Yes Status: Chronic Plan to address problem: Nephrology consulted in ED, dialysis as per renal team, CBC, CMP, supportive care (2) SVT (supraventricular tachycardia) Current Visit: Yes Status: Acute Plan to address problem: Adenosine therapy with return to NSR, admit to telemetry, cardiology consulted, thyroid panel (3) CHF exacerbation Current Visit: Yes Status: Acute Qualifiers: Heart failure type: diastolic Qualified Code(s): I50.33 - Acute on chronic diastolic (congestive) heart failure Plan to address problem: Admit to telemetry, strict I/O, daily weight, cardiology consulted in ED, afterload redcution, BNP, chest x ray, thyroid panel, magnesium level (4) Diabetes Current Visit: Yes Status: Chronic Plan to address problem: ADA diet, insulin sliding scale, accu check (5) HTN (hypertension) Current Visit: Yes Status: Chronic Qualifiers: Hypertension type: essential hypertension Qualified Code(s): I10 - Essential (primary) hypertension Plan to address problem: Monitor BP q shift, continue antihypertensive therapy (6) DVT prophylaxis Current Visit: Yes Status: Acute Plan to address problem: SCD To BLE while in bed, prophylactic heparin.
[2019-01-29 12:31] LABS: Chol/HDL Ratio 2.47 %
[2019-01-29] MEDS ORDERED: PROVENTIL IH PRN (12:42)
[2019-01-29] MEDS ORDERED: SODIUM CHLORIDE FLUSH SYRINGE 10 ML IV PRN ×2 (12:42→12:46)
[2019-01-29] MEDS ORDERED: ZOFRAN IV PRN (12:42)
[2019-01-29] MEDS ORDERED: MORPHINE IV PRN (12:42)
[2019-01-29] MEDS ORDERED: TYLENOL PO PRN (12:42)
[2019-01-29] MEDS ORDERED: NORCO 7.5/325 PO PRN (12:44)
[2019-01-29] MEDS ORDERED: BABY ASPIRIN PO STA (12:46)
[2019-01-29] MEDS ORDERED: NITROSTAT SL PRN (12:46)
[2019-01-29] MEDS ORDERED: BABY ASPIRIN ONE (14:23)
--- NOTE | 2019-01-29 15:12 | Consultation ---
History of Present Illness Consult date: 01/29/19 Requesting physician: COLT DOOLEY Consult reason: congestive heart failure, tachycardia History of present illness: The patient is a 73-year-old male with a past medical history of ESRD on HD (MWF), HTN, HLP, DM, prostate cancer. He is followed in our office by Dr. Carrero. He presented with c/o palpitations which awoke him from sleep this morning around 6:30AM. He states that he was in his usual state of health when he went to sleep last night. He reports compliance with dialysis and his home medication regimen. Per the chart, pt was noted to be in SVT upon EMS arrival and pt was given 6mg IV adenosine x 1 and converted to NSR and pt states his palpitations resolved. He remains in NSR on evaluation with no current complaints. Pt denies any prior history of CAD, AMI, HF or arrhythmia. Echo done 05/2016 showed EF 60%, LV mildly dilated, impaired relaxation, mild LVH, mildly dilated LA, mild to mod TR, trace MR, trivial pericardial effusion. Lexiscan MPI stress test done 07/2018 was negative. Past History Past Medical History: diabetes, DVT, ESRD, GERD, hypertension, hyperlipidemia Past Surgical History: Other (Toe amputation) Social history: . denies: smoking, alcohol abuse, prescription drug abuse Medications and Allergies Allergies Allergy/AdvReac Type Severity Reaction Status Date / Time atorvastatin calcium Allergy muscle Verified 05/17/16 15:47 [From Lipitor] stiffness Home Medications Medication Instructions Recorded Confirmed Last Taken Type Allopurinol [Zyloprim] 300 mg PO QDAY 05/17/16 01/29/19 02/04/17 History Furosemide [Lasix TAB] 40 mg PO BID 05/17/16 01/29/19 02/04/17 History Ranitidine HCl [Heartburn Relief] 150 mg PO BID 05/17/16 01/29/19 02/04/17 History B Complex 11/Folic/C/Biot/Zinc 1 each PO QDAY 01/31/17 01/29/19 02/04/17 History [Dialyvite with Zinc Tablet] Sertraline [Zoloft] 50 mg PO QDAY 01/31/17 01/29/19 02/04/17 History Clopidogrel [Plavix] 75 mg PO QDAY 01/29/19 01/29/19 Unknown History Ergocalciferol (Vitamin D2) 2,000 unit PO DAILY 01/29/19 01/29/19 Unknown History [Vitamin D2] Metoprolol [Lopressor] 25 mg PO BID 01/29/19 01/29/19 Unknown History Pravastatin [Pravachol] 40 mg PO DAILY 01/29/19 01/29/19 Unknown History Pregabalin [Lyrica] 50 mg PO BID 01/29/19 01/29/19 Unknown History amLODIPine [Norvasc] 10 mg PO DAILY 01/29/19 01/29/19 Unknown History Active Meds: Active Medications Acetaminophen (Tylenol) 650 mg PO Q4H PRN PRN Reason: Pain MILD(1-3)/Fever >100.5/[place] Acetaminophen/Hydrocodone Bitart ([place] 7.5/325) 1 each PO Q6HR PRN PRN Reason: Pain Albuterol (Proventil) 2.5 mg IH Q4HRT PRN PRN Reason: Shortness Of Breath Allopurinol (Zyloprim) 100 mg PO QDAY [facility] Amlodipine Besylate (Norvasc) 5 mg PO DAILY [facility] Famotidine (Pepcid) 20 mg PO DAILY [facility] Furosemide (Lasix) 40 mg IV 0600,1800 [facility] Insulin Glargine (Lantus) 30 units SUB-Q BID [facility] Metoprolol Tartrate (Lopressor) 50 mg PO BID [facility] Morphine Sulfate (Morphine) 2 mg IV Q4H PRN PRN Reason: Pain, Moderate (4-6) Multivit/Ca Carb/B Cmplx/FA/Prenat (Renal Caps) 1 cap PO QDAY [facility] Nitroglycerin (Nitrostat) 0.4 mg SL Q5M PRN PRN Reason: Chest Pain Ondansetron HCl (Zofran) 4 mg IV Q8H PRN PRN Reason: Nausea And Vomiting Sertraline HCl (Zoloft) 50 mg PO QDAY [facility] Sodium Chloride (Sodium Chloride Flush Syringe 10 Ml) 10 ml IV BID [facility] Sodium Chloride (Sodium Chloride Flush Syringe 10 Ml) 10 ml IV PRN PRN PRN Reason: LINE FLUSH Sodium Chloride (Sodium Chloride Flush Syringe 10 Ml) 10 ml IV PRN PRN PRN Reason: LINE FLUSH Review of Systems Constitutional: no weight loss, no weight gain, no fever, no chills, no sweats Ears, nose, mouth and throat: no ear pain, no nose pain, no sinus pressure, no sinus pain Cardiovascular: palpitations, rapid/irregular heart beat, no chest pain, no orthopnea, no edema, no syncope, no lightheadedness, no shortness of breath, no dyspnea on exertion, no high blood pressure, no leg edema Respiratory: no cough, no shortness of breath, no dyspnea on exertion, no congestion, no wheezing, no pain on inspiration Gastrointestinal: no abdominal pain, no nausea, no vomiting, no diarrhea, no constipation, no change in bowel habits Genitourinary Male: no dysuria, no hematuria, no flank pain, no discharge, no u rinary frequency, no urinary hesitancy Musculoskeletal: no neck stiffness, no neck pain, no shooting arm pain, no arm numbness/tingling, no low back pain, no shooting leg pain Integumentary: no rash, no pruritis, no redness, no sores, no wounds Neurological: no head injury, no paralysis, no weakness, no parathesias, no numb ness, no tingling, no seizures, no syncope Psychiatric: no anxiety Endocrine: no cold intolerance, no heat intolerance Hematologic/Lymphatic: no easy bruising, no easy bleeding Allergic/Immunologic: no urticaria, no wheezing Physical Examination Vital Signs Temp Pulse Resp BP Pulse Ox 97.8 F 84 13 141/77 98 01/29/19 11:17 01/29/19 11:17 01/29/19 11:17 01/29/19 11:17 01/29/19 11:17 General appearance: no acute distress HEENT: Positive: PERRL, Normocephaly, Mucus Membranes Moist Neck: Positive: neck supple, trachea midline Cardiac: Positive: Reg Rate and Rhythm, S1/S2 Lungs: Positive: Decreased Breath Sounds Neuro: Positive: Grossly Intact Abdomen: Positive: Soft. Negative: Tender Male genitourinary: Negative: tender Skin: Negative: Rash, Wound Musculoskeletal: No Pain Extremities: Absent: edema Results 01/29/19 11:32 01/29/19 11:25 Cardiac Enzymes 01/29/19 Range/Units 11:25 AST 9 (5-40) units/L CK-MB (CK-2) 2.3 (0.0-4.0) ng/mL Lipids 01/29/19 Range/Units 11:25 Triglycerides 97 (2-149) mg/dL Cholesterol 141 (50-199) mg/dL HDL Cholesterol 57 (40-59) mg/dL Cholesterol/HDL Ratio 2.47 % CBC 01/29/19 Range/Units 11:32 WBC 10.5 (4.5-11.0) K/mm3 RBC 3.51 L (3.65-5.03) M/mm3 Hgb 10.6 L (11.8-15.2) gm/dl Hct 32.8 L (35.5-45.6) % Plt Count 273 (140-440) K/mm3 Lymph # 0.8 L (1.2-5.4) K/mm3 [place] # 0.9 H (0.0-0.8) K/mm3 Eos # 0.3 (0.0-0.4) K/mm3 Baso # 0.0 (0.0-0.1) K/mm3 Comprehensive Metabolic Panel 01/29/19 Range/Units 11:25 Sodium 141 (137-145) mmol/L Potassium 5.3 H (3.6-5.0) mmol/L Chloride 99.8 (98-107) mmol/L Carbon Dioxide 21 L (22-30) mmol/L BUN 30 H (9-20) mg/dL Creatinine 7.1 H (0.8-1.5) mg/dL Glucose 150 H (75-100) mg/dL Calcium 9.2 (8.4-10.2) mg/dL AST 9 (5-40) units/L ALT 8 (7-56) units/L Alkaline Phosphatase 79 (35-129) units/L Total Protein 7.5 (6.3-8.2) g/dL Albumin 3.5 L (3.9-5) g/dL - Imaging and Cardiology Echo: pending, report reviewed (05/2016 showed EF 60%, LV mildly dilated, impaired relaxation, mild LVH, mildly dilated LA, mild to mod TR, trace MR, trivial pericardial effusion. ) EKG: report reviewed, image reviewed EKG interpretations - Telemetry EKG Rhythm: Sinus Rhythm - EKG Sinus rhythms and dysrhythmias: sinus rhythm Assessment and Plan Agree with present cardiac management. Obtain thyroid profile and Mg level. Await echo. The patient has been seen in conjunction with Dr. Lees who agrees with the assessment and plan of care. - Patient Problems (1) SVT (supraventricular tachycardia) Current Visit: Yes Status: Acute (2) ESRD (end stage renal disease) on dialysis Current Visit: Yes Status: Chronic (3) HTN (hypertension) Current Visit: Yes Status: Chronic Qualifiers: Hypertension type: essential hypertension Qualified Code(s): I10 - Essential (primary) hypertension (4) Diabetes Current Visit: Yes Status: Chronic (5) Hyperlipidemia Current Visit: Yes Status: Chronic
[2019-01-29 17:16] LABS: Free T4 (Free Thyroxine) 0.87 ng/dL (0.76-1.46)
[2019-01-29 17:17] LABS: Hepatitis C Virus Antibody Non-Reactive (NonReactive)
[2019-01-29 17:57] LABS: Hepatitis B Surface Antigen Non-Reactive (Negative)
[2019-01-29] MEDS: LASIX IV SCH (18:15)
[2019-01-29] MEDS: LANTUS SUB-Q SCH ×2 (21:33→21:44)
[2019-01-29] MEDS: LOPRESSOR PO SCH (21:34)
[2019-01-29] MEDS: SODIUM CHLORIDE FLUSH SYRINGE 10 ML IV SCH (21:34)
[2019-01-29] MEDS: PEPCID PO SCH (21:40)
[2019-01-29] MEDS ORDERED: INSULIN DETEMIR 30 UNIT SQ SCH (22:00)
[2019-01-30] MEDS: LASIX IV SCH (05:24)
[2019-01-30 05:54] LABS: Albumin 3.2 g/dL (3.9-5); Calcium 8.7 mg/dL (8.4-10.2)
[2019-01-30] MEDS ORDERED: ZOLOFT PO SCH (10:00)
[2019-01-30] MEDS ORDERED: ZYLOPRIM PO SCH ×2 (10:00)
[2019-01-30] MEDS ORDERED: NON-FORMULARY (B Complex 11/Folic/C/Biot/Zinc [Dialyvite With Zinc Tablet] 1 EACH) PO SCH (10:00)
[2019-01-30] MEDS ORDERED: NON-FORMULARY (Gabapentin [Gralise] 600 MG) PO SCH (10:00)
[2019-01-30] MEDS ORDERED: Renal Caps PO SCH (10:00)
[2019-01-30] MEDS: SODIUM CHLORIDE FLUSH SYRINGE 10 ML IV SCH (10:37)
[2019-01-30] MEDS: PEPCID PO SCH (10:37)
[2019-01-30] MEDS: LOPRESSOR PO SCH ×2 (10:38→11:59)
[2019-01-30] MEDS: NORVASC PO SCH ×2 (10:39→11:59)
[2019-01-30] MEDS ORDERED: PROCRIT IV PRN (11:01)
[2019-01-30] MEDS ORDERED: NACL 0.9% 100 ML IV PRN (11:01)
[2019-01-30] MEDS ORDERED: ALBURX 25% (ALBUMIN) IV PRN (11:01)
--- NOTE | 2019-01-30 11:01 | Consultation ---
History of Present Illness - Reason for Consult Consult date: 01/30/19 end stage renal disease Requesting physician: COLT DOOLEY - History of Present Illness 73 YO Male with HTN, DM, HLD, ESRD on HD, DVT RLE, GERD, Migraine Headache presents to ED for evaluation. Pt states that he has experienced pain in his chest and chest palpitations over the past 1 day with acutely worsening symptoms over the past 6 hours. Pt states that pain is 4-6/10, substernal, nonradiating, not worsened with exertion, not relieved with rest, but associated with decreased exercise tolerance as well as palpitations. EMS notified, and upon arrival the patient was found to be in distress with Supraventricular Tachycardia. Pt treated with adenosine with conversion to normal sinus rhythm. Pt transported to [facility]. Pt seen and evaluated in ED and found to have Angina, as well as symptoms consistent with Diastolic CHF, and ESRD. PT admitted to telemetry. Cardiology team consulted in ED. Nephrology team consulted in ED. Pt denies fever, chills, NVD, Trauma, BRBPR, unintentional weight loss, night swl Past History Past Medical History: diabetes, DVT, ESRD, GERD, hypertension, hyperlipidemia Past Surgical History: Other (Toe amputation) Social history: . denies: smoking, alcohol abuse, prescription drug abuse Review of Systems Constitutional: no weight loss, no weight gain, no fever, no chills Ears, nose, mouth and throat: no ear pain, no ear discharge, no tinnitis, no decreased hearing, no nose pain Cardiovascular: chest pain, palpitations, high blood pressure, no orthopnea, no rapid/irregular heart beat, no edema, no lightheadedness, no paroxysmal nocturnal dyspnea, no claudication, no phlebitis Respiratory: no cough, no cough with sputum, no excessive sputum, no hemoptysis, no shortness of breath, no dyspnea on exertion Gastrointestinal: no abdominal pain, no nausea, no vomiting, no diarrhea, no constipation, no hematemesis Genitourinary Male: no flank pain, no discharge, no urinary frequency, no uri nary hesitancy Rectal: no pain, no bleeding Musculoskeletal: no neck stiffness, no neck pain, no shooting arm pain, no low back pain Integumentary: no rash, no pruritis, no redness, no sores, no wounds Neurological: no transient paralysis, no paralysis, no weakness, no parathesias, no syncope Psychiatric: no anxiety, no memory loss, no change in sleep habits, no sleep disturbances, no insomnia, no hypersomnia Endocrine: no cold intolerance, no heat intolerance, no polyphagia, no excessive thirst, no polydipsia, no polyuria, no nocturia Hematologic/Lymphatic: no easy bruising, no easy bleeding, no lymphadenopathy, no lymphedema Allergic/Immunologic: no urticaria, no allergic rhinitis, no wheezing, no persistent infections, no angioedema Past History Past Medical History: diabetes, DVT, ESRD, GERD, hypertension, hyperlipidemia Past Surgical History: Other (Toe amputation) Social history: . denies: smoking, alcohol abuse, prescription drug abuse Medications and Allergies Allergies Allergy/AdvReac Type Severity Reaction Status Date / Time atorvastatin calcium Allergy muscle Verified 05/17/16 15:47 [From Lipitor] stiffness Home Medications Medication Instructions Recorded Confirmed Last Taken Type Allopurinol [Zyloprim] 300 mg PO QDAY 05/17/16 01/29/19 02/04/17 History Furosemide [Lasix TAB] 40 mg PO BID 05/17/16 01/29/19 02/04/17 History Ranitidine HCl [Heartburn Relief] 150 mg PO BID 05/17/16 01/29/19 02/04/17 History B Complex 11/Folic/C/Biot/Zinc 1 each PO QDAY 01/31/17 01/29/19 02/04/17 History [Dialyvite with Zinc Tablet] Sertraline [Zoloft] 50 mg PO QDAY 01/31/17 01/29/19 02/04/17 History Clopidogrel [Plavix] 75 mg PO QDAY 01/29/19 01/29/19 Unknown History Ergocalciferol (Vitamin D2) 2,000 unit PO DAILY 01/29/19 01/29/19 Unknown History [Vitamin D2] Metoprolol [Lopressor] 25 mg PO BID 01/29/19 01/29/19 Unknown History Pravastatin [Pravachol] 40 mg PO DAILY 01/29/19 01/29/19 Unknown History Pregabalin [Lyrica] 50 mg PO BID 01/29/19 01/29/19 Unknown History amLODIPine [Norvasc] 10 mg PO DAILY 01/29/19 01/29/19 Unknown History Active Meds: Active Medications Acetaminophen (Tylenol) 650 mg PO Q4H PRN PRN Reason: Pain MILD(1-3)/Fever >100.5/[place] Acetaminophen/Hydrocodone Bitart ([place] 7.5/325) 1 each PO Q6HR PRN PRN Reason: Pain Albuterol (Proventil) 2.5 mg IH Q4HRT PRN PRN Reason: Shortness Of Breath Allopurinol (Zyloprim) 100 mg PO QDAY [facility] Last Admin: 01/30/19 10:37 Dose: 100 mg Documented by: Amlodipine Besylate (Norvasc) 5 mg PO DAILY [facility] Last Admin: 01/30/19 10:39 Dose: Not Given Documented by: Famotidine (Pepcid) 20 mg PO DAILY [facility] Last Admin: 01/30/19 10:37 Dose: 20 mg Documented by: Furosemide (Lasix) 40 mg IV 0600,1800 [facility] Last Admin: 01/30/19 05:24 Dose: 40 mg Documented by: Insulin Glargine (Lantus) 30 units SUB-Q BID [facility] Last Admin: 01/29/19 21:44 Dose: Not Given Documented by: Metoprolol Tartrate (Lopressor) 50 mg PO BID [facility] Last Admin: 01/30/19 10:38 Dose: Not Given Documented by: Morphine Sulfate (Morphine) 2 mg IV Q4H PRN PRN Reason: Pain, Moderate (4-6) Multivit/Ca Carb/B Cmplx/FA/Prenat (Renal Caps) 1 cap PO QDAY [facility] Last Admin: 01/30/19 10:37 Dose: 1 cap Documented by: Nitroglycerin (Nitrostat) 0.4 mg SL Q5M PRN PRN Reason: Chest Pain Ondansetron HCl (Zofran) 4 mg IV Q8H PRN PRN Reason: Nausea And Vomiting Sertraline HCl (Zoloft) 50 mg PO QDAY [facility] Last Admin: 01/30/19 10:36 Dose: 50 mg Documented by: Sodium Chloride (Sodium Chloride Flush Syringe 10 Ml) 10 ml IV BID [facility] Last Admin: 01/30/19 10:37 Dose: 10 ml Documented by: Sodium Chloride (Sodium Chloride Flush Syringe 10 Ml) 10 ml IV PRN PRN PRN Reason: LINE FLUSH Sodium Chloride (Sodium Chloride Flush Syringe 10 Ml) 10 ml IV PRN PRN PRN Reason: LINE FLUSH Exam - Vital Signs Vital signs: Vital Signs Temp Pulse Resp BP Pulse Ox 97.8 F 84 13 141/77 98 01/29/19 11:17 01/29/19 11:17 01/29/19 11:17 01/29/19 11:17 01/29/19 11:17 - Physical Exam Narrative exam: General appearance: Present: mild distress - EENT Eyes: Present: PERRL ENT: hearing intact, clear oral mucosa - Neck Neck: Present: supple, normal ROM - Respiratory Respiratory effort: normal Respiratory: bilateral: CTA - Cardiovascular Rhythm: irregularly irregular Heart Sounds: Present: S1 & S2. Absent: rub, click - Extremities Extremities: pulses symmetrical, No edema Peripheral Pulses: within normal limits - Abdominal General gastrointestinal: Present: soft, non-tender, non-distended, normal bowel sounds Male genitourinary: Present: normal - Integumentary Integumentary: Present: clear, warm, dry, erythema (a) - Musculoskeletal Musculoskeletal: gait normal, strength equal bilaterally - Psychiatric Psychiatric: appropriate mood/affect, intact judgment & insight - Neurologic Neurologic: CNII-XII intact, moves all extremities Results - Lab Results 01/29/19 11:32 01/30/19 04:57 Most recent lab results Calcium 8.7 mg/dL (8.4-10.2) 01/30/19 04:57 Magnesium 2.20 mg/dL (1.7-2.3) 01/29/19 16:08 Assessment and Plan Impression: * ESRD * HTN * SOB * cardiomyopathy * type 2 DM * SVT * anemia in esrd Plan: * HD today, uf as tolerated * place on MWF schedule and prn * strict i/os * renal diet * cards to work up svt and chest pain * follow up cxr
--- NOTE | 2019-01-30 11:14 | Progress Note ---
Assessment and Plan Echo reviewed - EF 50-55%, impaired relaxation. Currently stable cardiac status. Pt maintained NSR overnight. Pt denies any current complaints. Troponin elevation appears c/w NSTEMI type II. AMI ruled out. Pt may discharge home from cardiology standpoint on current cardiac regimen. Recommend pt follow up in our office with Dr. Carrero within 1-2 weeks of hospital discharge ([phone]). The patient has been seen in conjunction with Dr. Lees who agrees with the assessment and plan of care. - Patient Problems (1) SVT (supraventricular tachycardia) Current Visit: Yes Status: Acute (2) ESRD (end stage renal disease) on dialysis Current Visit: Yes Status: Chronic (3) HTN (hypertension) Current Visit: Yes Status: Chronic Qualifiers: Hypertension type: essential hypertension Qualified Code(s): I10 - Essential (primary) hypertension (4) Diabetes Current Visit: Yes Status: Chronic (5) Hyperlipidemia Current Visit: Yes Status: Chronic (6) NSTEMI (non-ST elevated myocardial infarction) Current Visit: Yes Status: Acute Plan to address problem: type II Subjective Date of service: 01/30/19 Principal diagnosis: SVT Interval history: pt resting in bed, no current complaints. no acute events overnight. pt in SR on tele with no SVT overnight. Objective Last Vital Signs Temp 98.5 F 01/30/19 05:15 Pulse 71 01/30/19 10:39 Resp 18 01/30/19 05:15 BP 154/80 01/30/19 10:39 Pulse Ox 94 01/30/19 05:15 - Physical Examination General: No Apparent Distress HEENT: Positive: PERRL, Normocephaly, Mucus Membranes Moist Neck: Positive: neck supple, trachea midline Cardiac: Positive: Reg Rate and Rhythm, S1/S2 Lungs: Positive: Decreased Breath Sounds Neuro: Positive: Grossly Intact Abdomen: Positive: Soft. Negative: Tender Skin: Negative: Rash, Wound Musculoskeletal: No Pain Extremities: Absent: edema - Labs and Meds Cardiac Enzymes 01/29/19 01/30/19 Range/Units 11:25 04:57 AST 9 10 (5-40) units/L CK-MB (CK-2) 2.3 (0.0-4.0) ng/mL Lipids 01/29/19 Range/Units 11:25 Triglycerides 97 (2-149) mg/dL Cholesterol 141 (50-199) mg/dL HDL Cholesterol 57 (40-59) mg/dL Cholesterol/HDL Ratio 2.47 % CBC 01/29/19 Range/Units 11:32 WBC 10.5 (4.5-11.0) K/mm3 RBC 3.51 L (3.65-5.03) M/mm3 Hgb 10.6 L (11.8-15.2) gm/dl Hct 32.8 L (35.5-45.6) % Plt Count 273 (140-440) K/mm3 Lymph # 0.8 L (1.2-5.4) K/mm3 [place] # 0.9 H (0.0-0.8) K/mm3 Eos # 0.3 (0.0-0.4) K/mm3 Baso # 0.0 (0.0-0.1) K/mm3 Comprehensive Metabolic Panel 01/29/19 01/30/19 Range/Units 11:25 04:57 Sodium 141 142 (137-145) mmol/L Potassium 5.3 H 4.8 (3.6-5.0) mmol/L Chloride 99.8 102.3 (98-107) mmol/L Carbon Dioxide 21 L 21 L (22-30) mmol/L BUN 30 H 39 H (9-20) mg/dL Creatinine 7.1 H 8.3 H (0.8-1.5) mg/dL Glucose 150 H 88 (75-100) mg/dL Calcium 9.2 8.7 (8.4-10.2) mg/dL AST 9 10 (5-40) units/L ALT 8 7 (7-56) units/L Alkaline Phosphatase 79 76 (35-129) units/L Total Protein 7.5 7.1 (6.3-8.2) g/dL Albumin 3.5 L 3.2 L (3.9-5) g/dL - Imaging and Cardiology EKG: report reviewed, image reviewed Echo: pending, report reviewed (05/2016 showed EF 60%, LV mildly dilated, impaired relaxation, mild LVH, mildly dilated LA, mild to mod TR, trace MR, trivial pericardial effusion. ) - EKG Sinus rhythms and dysrhythmias: sinus rhythm
--- NOTE | 2019-01-30 12:13 | Discharge Summary ---
Providers - Providers Date of Admission: 01/29/19 12:42 Attending physician: FAVIO DHALIWAL MD 01/29/19 Consult to Cardiac Rehabilitation [CONS] Routine Reason For Exam: Phase I 01/29/19 12:46 Consult to Cardiology [CONS] Routine Consulting Provider: YAMIL TRIMBLE Reason For Exam: CHF 01/29/19 12:49 Consult to Physician [CONS] Routine Comment: Consulting Provider: OLVIN OLMSTEAD Physician Instructions: Reason For Exam: ESRD 01/30/19 10:15 Physical Therapy Evaluation and Treat [CONS] Routine Comment: Reason For Exam: weakness/falls Primary care physician: JOSE RODRIGUEZ Hospitalization Reason for admission: SVT Condition: Stable Hospital course: 73 YO Male with HTN, DM, HLD, ESRD on HD, DVT RLE, GERD, Migraine Headache presents to ED for evaluation. Pt states that he has experienced pain in his chest and chest palpitations over the past 1 day with acutely worsening symptoms over the past 6 hours. Pt states that pain is 4-6/10, substernal, nonradiating, not worsened with exertion, not relieved with rest, but associated with decreased exercise tolerance as well as palpitations. EMS notified, and upon arrival the patient was found to be in distress with Supraventricular Tachycardia. Pt treated with adenosine with conversion to normal sinus rhythm. Pt transported to [facility]. Pt seen and evaluated in ED and found to have Angina, as well as symptoms consistent with Diastolic CHF, and ESRD. PT admitted to telemetry. Cardiology team consulted in ED. Nephrology team consulted in ED. Pt denies fever, chills, NVD, Trauma, BRBPR, unintentional weight loss, night swl Echo reviewed - EF 50-55%, impaired relaxation. Cardiology recommended continue outpatient work up and troponin elevation was felt to be c/w NSTEMI type II. AMI ruled out. Nephrology recommended continued dialysis (1) SVT (supraventricular tachycardia) Current Visit: Yes Status: Acute (2) ESRD (end stage renal disease) on dialysis Current Visit: Yes Status: Chronic (3) HTN (hypertension) Current Visit: Yes Status: Chronic Qualifiers: Hypertension type: essential hypertension Qualified Code(s): I10 - Essential (primary) hypertension (4) Diabetes Current Visit: Yes Status: Chronic (5) Hyperlipidemia Current Visit: Yes Status: Chronic (6) NSTEMI (non-ST elevated myocardial infarction) (7) cardiomyopathy (8) anemia in esrd Disposition: DC-01 TO HOME OR SELFCARE Time spent for discharge: 35 mins Core Measure Documentation - Palliative Care Palliative Care/ Comfort Measures: Not Applicable - Core Measures Any of the following diagnoses?: none Exam - Physical Exam Narrative exam: General appearance: Present: nO ACUTE DISTRESS - EENT Eyes: Present: PERRL ENT: hearing intact, clear oral mucosa - Neck Neck: Present: supple, normal ROM - Respiratory Respiratory effort: normal Respiratory: bilateral: CTA - Cardiovascular Rhythm: irregularly irregular Heart Sounds: Present: S1 & S2. Absent: rub, click - Extremities Extremities: pulses symmetrical, No edema Peripheral Pulses: within normal limits - Abdominal General gastrointestinal: Present: soft, non-tender, non-distended, normal bowel sounds Male genitourinary: Present: normal - Integumentary Integumentary: Present: clear, warm, dry, erythema - Musculoskeletal Musculoskeletal: gait normal, strength equal bilaterally - Psychiatric Psychiatric: appropriate mood/affect, intact judgment & insight - Neurologic Neurologic: CNII-XII intact, moves all extremities - Constitutional Vitals: Temp Pulse Resp BP Pulse Ox 98.5 F 71 18 154/80 94 01/30/19 05:15 01/30/19 11:59 01/30/19 05:15 01/30/19 11:59 01/30/19 05:15 Plan Activity: advance as tolerated, fall precautions Diet: renal Special Instructions: record daily BP diary Follow up with: JOSE RODRIGUEZ MD [Primary Care Provider] - 3-5 Days MICHAEL MARIE MD [Staff Physician] - 7 Days TESFAYE MARIE MD [Staff Physician] - 7 Days Prescriptions: Metoprolol [Lopressor TAB] 50 mg PO BID #60 tablet Other Discharge Orders: Occupational Therapy (Amb) Location: None Selected Physicial Therapy (Amb) Location: None Selected
[2019-01-30] MEDS: LANTUS SUB-Q SCH (12:19)
[2019-01-30 19:04] VITALS: BP 158/83
== END 2019-01-30 19:28 | disposition home or self-care (01) ==
LOC: ED 11:10 → 4A 12:42 → INTOOBSV 12:42
PROVIDERS: ADMIT Internal Medicine; ATTEND Internal Medicine
DX: R07.2 Precordial pain (principal); I12.0 Hypertensive chronic kidney disease with stage 5 chronic kidney disease or end stage renal disease; I50.33 Acute on chronic diastolic (congestive) heart failure; N18.6 End stage renal disease; I21.4 Non-ST elevation (NSTEMI) myocardial infarction; R00.2 Palpitations; I47.1 Supraventricular tachycardia; D63.1 Anemia in chronic kidney disease; E11.22 Type 2 diabetes mellitus with diabetic chronic kidney disease; K21.9 Gastro-esophageal reflux disease without esophagitis; E78.5 Hyperlipidemia, unspecified; G43.909 Migraine, unspecified, not intractable, without status migrainosus; Z88.8 Allergy status to other drugs, medicaments and biological substances; Z79.899 Other long term (current) drug therapy; Z99.2 Dependence on renal dialysis
CPT/HCPCS: 36415; 71045; 80053; 80061; 80074; 82140; 82550; 82553; 82962; 83735; 83880; 84439; 84443; 84484; 85025; 93005; 93010; 93306; 96374; 96376; 99291; G0257; G0378; J1940; J1815

== ENCOUNTER 2019-06-05 08:44 | Observation (INO) | payer MEDICARE ==
--- NOTE | 2019-06-05 09:03 | Emergency Department Report ---
HPI - General Chief Complaint: Recheck/Abnormal Lab/Rx Time Seen by Provider: 06/05/19 08:53 - HPI HPI: 73-year-old male presents to the emergency department for 2 complaints. First, the patient has been having a one-week history of some abdominal pain. It is associated with some increased urine production and increased bowel movements, but he denies any fever, nausea, vomiting. Patient says that he had a colonoscopy done about one month ago that was "inconclusive" and that there was some type of blockage found but nothing that was emergent at that time and he is scheduled to see a general surgeon in about 1 month. The patient has end-stage renal disease and usually gets hemodialysis on Saturday/Saturday/Saturday but has missed about one week's worth of dialysis secondary to the abdominal pain. He went to go get the dialysis completed today but was told that he needed to come to the emergency department for some blood work since he has missed multiple dialysis sessions. His allergist/md is Dr. Mcmillan. He also has a past medical history of gout, previous DVT, diabetes, GERD, hypertension. ED Past Medical Hx - Past Medical History Previous Medical History?: Yes Hx Hypertension: Yes Hx Diabetes: Yes Hx Deep Vein Thrombosis: Yes (RIGHT LEG IN 2013 AND 2001) Hx GERD: Yes Hx Liver Disease: No Hx Renal Disease: Yes Hx Sickle Cell Disease: No Hx Arthritis: Yes (gout) Hx Headaches / Migraines: Yes (MIGRAINES ) Hx HIV: No - Surgical History Past Surgical History?: Yes Additional Surgical History: FISTULA RIGHT WRIST. 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/2017 - Social History Smoking Status: Never Smoker Substance Use Type: Alcohol - Medications Home Medications: Home Medications Medication Instructions Recorded Confirmed Last Taken Type Allopurinol [Zyloprim] 300 mg PO QDAY 05/17/16 01/29/19 02/04/17 History Furosemide [Lasix TAB] 40 mg PO BID 05/17/16 01/29/19 02/04/17 History Ranitidine HCl [Heartburn Relief] 150 mg PO BID 05/17/16 01/29/19 02/04/17 History B Complex 11/Folic/C/Biot/Zinc 1 each PO QDAY 01/31/17 01/29/19 02/04/17 History [Dialyvite with Zinc Tablet] Sertraline [Zoloft] 50 mg PO QDAY 01/31/17 01/29/19 02/04/17 History Clopidogrel [Plavix] 75 mg PO QDAY 01/29/19 01/29/19 Unknown History Ergocalciferol (Vitamin D2) 2,000 unit PO DAILY 01/29/19 01/29/19 Unknown History [Vitamin D2] Pravastatin [Pravachol] 40 mg PO DAILY 01/29/19 01/29/19 Unknown History Pregabalin [Lyrica] 50 mg PO BID 01/29/19 01/29/19 Unknown History amLODIPine [Norvasc] 10 mg PO DAILY 01/29/19 01/29/19 Unknown History HYDROcodone/APAP 7.5-325 [[place] 1 each PO Q6HR PRN tablet 01/30/19 Unknown Rx 7.5-325 mg TAB] Metoprolol [Lopressor TAB] 50 mg PO BID #60 tablet 01/30/19 Unknown Rx amLODIPine [Norvasc] 5 mg PO DAILY tablet 01/30/19 Unknown Rx ED Review of Systems ROS: Stated complaint: BLOOD WORK Other details as noted in HPI Comment: All other systems reviewed and negative Constitutional: denies: chills, fever Eyes: denies: eye pain, vision change ENT: denies: ear pain, throat pain Respiratory: denies: cough, shortness of breath Cardiovascular: denies: chest pain, palpitations Gastrointestinal: abdominal pain. denies: nausea, vomiting Genitourinary: denies: dysuria, discharge Musculoskeletal: denies: back pain, arthralgia Skin: denies: rash, lesions Neurological: denies: headache, weakness Physical Exam - Physical Exam Vital Signs: Vital Signs 06/05/19 08:49 Temperature 98.1 F Pulse Rate 62 Respiratory 18 Rate Blood Pressure 170/82 O2 Sat by Pulse 97 Oximetry Physical Exam: GENERAL: The patient is well-developed well-nourished. HENT: Normocephalic. Atraumatic. Patient has moist mucous membranes. EYES: Extraocular motions are intact. NECK: Supple. Trachea is midline. CHEST/LUNGS: Clear to auscultation. There is no respiratory distress noted. HEART/CARDIOVASCULAR: Regular. There is no tachycardia. There is no murmur. ABDOMEN: Abdomen is soft. Mild generalized tenderness to palpation. No guarding. Patient has normal bowel sounds. There is no abdominal distention. SKIN: Skin is warm and dry. NEURO: The patient is awake, alert, and oriented. The patient is cooperative. The patient has no focal neurologic deficits. Normal speech. MUSCULOSKELETAL: There is no tenderness or deformity. There is no evidence of acute injury. ED Course Vital Signs 06/05/19 08:49 Temperature 98.1 F Pulse Rate 62 Respiratory 18 Rate Blood Pressure 170/82 O2 Sat by Pulse 97 Oximetry - Consultations Consultation #1: 06/05/19 10:50 I spoke with the allergist/md identification technician for [facility], Dr Jack, who recommends admission and dialysis for the hyperkalemia. A consult has been placed. ED Medical Decision Making - Lab Data Result diagrams: 06/05/19 09:22 06/05/19 09:22 - Radiology Data Radiology results: image reviewed interpreted by me: X-ray of the abdomen shows some increased stool volume and nonspecific nonobstructive bowel gas. - Medical Decision Making Patient presents with the complaint of not being able to receive dialysis today after missing a few dialysis sessions. He has a potassium of 6.1 with elevated BUNs, creatinine levels. Nephrology was contacted and consult at and the patient will be admitted for dialysis. Accepted for admission by Dr. Pickett. Abdominal x-ray shows increased stool volume and nonspecific nonobstructive bowel gas. Vital signs stable throughout his ED course. - Differential Diagnosis hyperkalemia, CHF/volume overload, constipation, bowel obstruction Critical Care Time: No Critical care attestation.: If time is entered above; I have spent that time in minutes in the direct care of this critically ill patient, excluding procedure time. ED Disposition Clinical Impression: Hyperkalemia, Missed dialysis, End-stage renal disease needing dialysis Abdominal pain Qualifiers: Abdominal location: unspecified location Qualified Code(s): R10.9 - Unspecified abdominal pain Disposition: OP ADMIT IP TO THIS HOSP Is pt being admited?: Yes Condition: Fair Time of Disposition: 10:52
[2019-06-05 09:31] LABS: Basophils % (Auto) 0.4 % (0.0-1.8); Eosinophils # (Auto) 0.7 K/mm3 (0.0-0.4); Eosinophils % (Auto) 6.1 % (0.0-4.3); Hematocrit 32.3 % (35.5-45.6); Hemoglobin 10.6 gm/dl (11.8-15.2); Lymphocytes # (Auto) 1.2 K/mm3 (1.2-5.4); Lymphocytes % (Auto) 9.4 % (13.4-35.0); Mean Corpuscular HGB Conc 33 % (32-34); Mean Corpuscular Volume 98 fl (84-94); Monocytes # (Auto) 1.1 K/mm3 (0.0-0.8); Monocytes % (Auto) 9.1 % (0.0-7.3); Platelet Count 220 K/mm3 (140-440); Red Blood Count 3.31 M/mm3 (3.65-5.03); Red Cell Distribution Width 19.2 % (13.2-15.2)
[2019-06-05 09:53] LABS: Albumin 3.7 g/dL (3.9-5); Calcium 8.1 mg/dL (8.4-10.2)
--- NOTE | 2019-06-05 09:58 | XRay Report ---
ABDOMEN 2 VIEW(S) INDICATION / CLINICAL INFORMATION: Chronic diarrhea, abdominal pain for 4 years. COMPARISON: None available. FINDINGS: TUBES / LINES: None. BOWEL GAS PATTERN: There is moderate to large stool throughout the length of the colon. No evidence f or dilated bowel or fluid levels. FREE AIR / EXTRALUMINAL GAS: None seen. ADDITIONAL FINDINGS: Radiotherapy beads are noted in the prostate bed. IMPRESSION: Fecal retention. No acute process. Signer Name: Boyd Schaeffer Jr, MD Signed: 06/05/2019 9:53 AM Workstation Name: [id number]
--- NOTE | 2019-06-05 11:37 | Consultation ---
History of Present Illness - History of Present Illness 73-year-old gentleman with medical history significant for hypertension, diab etes mellitus type 2, end-stage renal disease on hemodialysis via a right forearm radiocephalic fistula at the [facility] on Wednesdays and Saturday reports he missed dialysis due to persistent diarrhea patient persists had diarrhea for the past 3 years has had numerous endoscopic takes Imodium on a daily basis. He missed dialysis sessionS and was sent to the emergency room for evaluation labs in the emergency room significant for potassium of 6.1 Medications and Allergies Allergies Allergy/AdvReac Type Severity Reaction Status Date / Time atorvastatin calcium Allergy muscle Verified 05/17/16 15:47 [From Lipitor] stiffness Home Medications Medication Instructions Recorded Confirmed Last Taken Type Allopurinol [Zyloprim] 300 mg PO QDAY 05/17/16 06/05/19 06/05/19 History Furosemide [Lasix TAB] 40 mg PO BID 05/17/16 06/05/19 06/05/19 History Ranitidine HCl [Heartburn Relief] 150 mg PO BID 05/17/16 06/05/19 06/03/19 History B Complex 11/Folic/C/Biot/Zinc 1 each PO QDAY 01/31/17 06/05/19 06/05/19 History [Dialyvite with Zinc Tablet] Sertraline [Zoloft] 50 mg PO QDAY 01/31/17 06/05/19 06/05/19 History Clopidogrel [Plavix] 75 mg PO QDAY 01/29/19 06/05/19 06/05/19 History Ergocalciferol (Vitamin D2) 2,000 unit PO DAILY 01/29/19 06/05/19 06/05/19 History [Vitamin D2] Pravastatin [Pravachol] 40 mg PO DAILY 01/29/19 06/05/19 06/05/19 History Pregabalin [Lyrica] 50 mg PO BID 01/29/19 06/05/19 06/04/19 History amLODIPine [Norvasc] 10 mg PO DAILY 01/29/19 06/05/19 06/05/19 History Metoprolol [Lopressor TAB] 50 mg PO BID #60 tablet 01/30/19 06/05/19 06/05/19 Rx amLODIPine [Norvasc] 5 mg PO DAILY tablet 05/06/05/19 06/05/19 Rx Review of Systems Constitutional: chills, fatigue, weakness, no weight loss, no weight gain, no fever Cardiovascular: no chest pain, no orthopnea Respiratory: no cough, no hemoptysis Gastrointestinal: nausea, diarrhea Genitourinary Male: no dysuria, no hematuria Rectal: no pain, no incontinence Musculoskeletal: no neck stiffness, no neck pain Integumentary: no deferred Neurological: no head injury, no transient paralysis Psychiatric: no anxiety, no memory loss Endocrine: no cold intolerance, no heat intolerance Hematologic/Lymphatic: no easy bruising, no easy bleeding Allergic/Immunologic: no urticaria Exam - Vital Signs Vital signs: Vital Signs Temp Pulse Resp BP Pulse Ox 98.1 F 62 18 170/82 97 06/05/19 08:49 06/05/19 08:49 06/05/19 08:49 06/05/19 08:49 06/05/19 08:49 - General Appearance General appearance: well-developed, well-nourished EENT: ATNC, PERRL, mucous membranes moist Neck: Present: neck supple Respiratory: Ronchi, Decreased Breath Sounds Heart: regular, S1S2 Gastrointestinal: Present: normal, normoactive bowel sounds Integumentary: hyperpigmentation, other (hyperpigmented skin lesions over the back) Neurologic: alert and oriented x3, CN 3-12 intact Psychiatric: mood/affect appropriate Results - Lab Results 06/05/19 09:22 06/05/19 09:22 Most recent lab results Calcium 8.1 mg/dL (8.4-10.2) L 06/05/19 09:22 - Image Kidney/bladder ultrasound: image reviewed (I reviewed abdominal x-ray which showed colon filled with stool) Assessment and Plan - Patient Problems (1) ESRD (end stage renal disease) on dialysis Current Visit: No Status: Chronic Plan to address problem: End-stage renal disease Access: Right arm aVF Ultrafiltration is 3 L over 4 hours (2) Diabetes Current Visit: No Status: Chronic Plan to address problem: Diabetes mellitus type 2 Continue medications Monitor fingerstick (3) HTN (hypertension) Current Visit: No Status: Chronic Qualifiers: Hypertension type: essential hypertension Qualified Code(s): I10 - Essent ial (primary) hypertension Plan to address problem: Hypertension uncontrolled Optimized volume status Continue medication (4) Hyperkalemia, diminished renal excretion Current Visit: Yes Status: Acute Plan to address problem: Hyperkalemia Secondary to renal failure will initiate dialysis
[2019-06-05 14:02] LABS: Hepatitis B Surface Antigen Non-Reactive (Negative); Hepatitis C Virus Antibody Non-Reactive (NonReactive)
--- NOTE | 2019-06-05 14:21 | History and Physical Report ---
History of Present Illness Date of examination: 06/05/19 Date of admission: 06/05/19 11:26 Chief complaint: abd pain History of present illness: 73-year-old male presents to the emergency department with complaints of abdominal pain. He reports that the pain is associated with some increased bowel movements but he denies any fever, nausea or vomiting. Patient says that he had a colonoscopy done about one month ago that was "inconclusive" and that there was some type of blockage found but nothing that was emergent at that time. He reports that he is scheduled to see a general surgeon in about 1 month. The patient has end-stage renal disease and usually gets hemodialysis on Saturday/Saturday/Saturday but has missed his dialysis for a week due to the abdominal pain. He went to go get the dialysis completed today but was told that he needed to come to the emergency department for some blood work since he has missed multiple dialysis sessions. His advertising copywriter is Dr. Mcmillan. He also has a past medical history of gout, previous DVT, diabetes, GERD, hypertension. Patient denies any nausea or vomiting. No fever or chills. No cough or cold- like symptoms. Past History Past Medical History: diabetes, GERD, hypertension, other (dvt, gout) Past Surgical History: No surgical history Social history: no significant social history Family history: no significant family history Medications and Allergies Allergies Allergy/AdvReac Type Severity Reaction Status Date / Time atorvastatin calcium Allergy muscle Verified 05/17/16 15:47 [From Lipitor] stiffness Home Medications Medication Instructions Recorded Confirmed Last Taken Type Allopurinol [Zyloprim] 300 mg PO QDAY 05/17/16 06/05/19 06/05/19 History Furosemide [Lasix TAB] 40 mg PO BID 05/17/16 06/05/19 06/05/19 History Ranitidine HCl [Heartburn Relief] 150 mg PO BID 05/17/16 06/05/19 06/03/19 History B Complex 11/Folic/C/Biot/Zinc 1 each PO QDAY 01/31/17 06/05/19 06/05/19 History [Dialyvite with Zinc Tablet] Sertraline [Zoloft] 50 mg PO QDAY 01/31/17 06/05/19 06/05/19 History Clopidogrel [Plavix] 75 mg PO QDAY 01/29/19 06/05/1906/05/19 History Ergocalciferol (Vitamin D2) 2,000 unit PO DAILY 01/29/19 06/05/19 06/05/19 History [Vitamin D2] Pravastatin [Pravachol] 40 mg PO DAILY 01/29/19 06/05/19 06/05/19 History Pregabalin [Lyrica] 50 mg PO BID 01/29/19 06/05/19 06/04/19 History amLODIPine [Norvasc] 10 mg PO DAILY 01/29/19 06/05/19 06/05/19 History Metoprolol [Lopressor TAB] 50 mg PO BID #60 tablet 01/30/19 06/05/19 06/05/19 Rx amLODIPine [Norvasc] 5 mg PO DAILY tablet 01/30/19 06/05/19 06/05/19 Rx Review of Systems All systems: negative Exam - Constitutional Vitals: Temp Pulse Resp BP Pulse Ox 97.6 F 54 L 18 172/87 96 06/05/19 12:24 06/05/19 12:24 06/05/19 12:24 06/05/19 12:24 06/05/19 12:00 General appearance: Present: no acute distress, well-nourished - EENT Eyes: Present: PERRL ENT: hearing intact, clear oral mucosa - Neck Neck: Present: supple, normal ROM - Respiratory Respiratory effort: normal Respiratory: bilateral: CTA - Cardiovascular Heart Sounds: Present: S1 & S2. Absent: rub, click - Extremities Extremities: pulses symmetrical, No edema Peripheral Pulses: within normal limits - Abdominal General gastrointestinal: Present: soft, non-tender, non-distended, normal bowel sounds Male genitourinary: Present: normal - Integumentary Integumentary: Present: clear, warm, dry - Musculoskeletal Musculoskeletal: gait normal, strength equal bilaterally - Psychiatric Psychiatric: appropriate mood/affect, intact judgment & insight - Neurologic Neurologic: CNII-XII intact, moves all extremities Results - Labs CBC & Chem 7: 06/05/19 09:22 06/05/19 09:22 Labs: Laboratory Last Values WBC 12.3 K/mm3 (4.5-11.0) H 06/05/19 09:22 RBC 3.31 M/mm3 (3.65-5.03) L 06/05/19 09:22 Hgb 10.6 gm/dl (11.8-15.2) L 06/05/19 09:22 Hct 32.3 % (35.5-45.6) L 06/05/19 09:22 MCV 98 fl (84-94) H 06/05/19 09:22 MCH 32 pg (28-32) 06/05/19 09:22 MCHC 33 % (32-34) 06/05/19 09:22 RDW 19.2 % (13.2-15.2) H 06/05/19 09:22 Plt Count 220 K/mm3 (140-440) 06/05/19 09:22 Lymph % (Auto) 9.4 % (13.4-35.0) L 06/05/19 09:22 Burke % (Auto) 9.1 % (0.0-7.3) H 06/05/19 09:22 Eos % (Auto) 6.1 % (0.0-4.3) H 06/05/19 09:22 Baso % (Auto) 0.4 % (0.0-1.8) 06/05/19 09:22 Lymph # 1.2 K/mm3 (1.2-5.4) 06/05/19 09:22 Burke # 1.1 K/mm3 (0.0-0.8) H 06/05/19 09:22 Eos # 0.7 K/mm3 (0.0-0.4) H 06/05/19 09:22 Baso # 0.0 K/mm3 (0.0-0.1) 06/05/19 09:22 Seg Neutrophils % 75.0 % (40.0-70.0) H 06/05/19 09:22 Seg Neutrophils # 9.2 K/mm3 (1.8-7.7) H 06/05/19 09:22 Sodium 145 mmol/L (137-145) 06/05/19 09:22 Potassium 6.1 mmol/L (3.6-5.0) H* 06/05/19 09:22 Chloride 98.3 mmol/L (98-107) 06/05/19 09:22 Carbon Dioxide 23 mmol/L (22-30) 06/05/19 09:22 Anion Gap 30 mmol/L 06/05/19 09:22 BUN 90 mg/dL (9-20) H 06/05/19 09:22 Creatinine 12.6 mg/dL (0.8-1.5) H 06/05/19 09:22 Estimated GFR 5 ml/min 06/05/19 09:22 BUN/Creatinine Ratio 7 % 06/05/19 09:22 Glucose 119 mg/dL (75-100) H 06/05/19 09:22 Calcium 8.1 mg/dL (8.4-10.2) L 06/05/19 09:22 Total Bilirubin 0.20 mg/dL (0.1-1.2) 06/05/19 09:22 AST 7 units/L (5-40) 06/05/19 09:22 ALT 6 units/L (7-56) L 06/05/19 09:22 Alkaline Phosphatase 80 units/L (35-129) 06/05/19 09:22 Total Protein 7.3 g/dL (6.3-8.2) 06/05/19 09:22 Albumin 3.7 g/dL (3.9-5) L 06/05/19 09:22 Albumin/Globulin Ratio 1.0 % 06/05/19 09:22 Hepatitis A IgM Ab Non-reactive (NonReactive) 06/05/19 12:09 Hep Bs Antigen Non-reactive (Negative) 06/05/19 12:09 Hep B Core IgM Ab Non-reactive (NonReactive) 06/05/19 12:09 Hepatitis C Antibody Non-reactive (NonReactive) 06/05/19 12:09 Assessment and Plan Assessment and plan: ESRD on hemodialysis. Patient with 3 missed hemodialysis sessions. Nephrology has been consulted and patient will undergo hemodialysis today. Hyperkalemia. Urgent hemodialysis as noted above. Abdominal pain. Check CT scan of the abdomen and pelvis. Hypertension. Resume antihypertensive medications. Diabetes mellitus type 2. Continue Accu-Cheks and sliding scale regular insulin. History DVT. History of gout.
[2019-06-05] MEDS ORDERED: ACETAMINOPHEN 325 MG TAB PO PRN (15:00)
[2019-06-05] MEDS ORDERED: DEXTROSE 50% IN WATER (25GM) 50 ML SYRINGE IV PRN (15:00)
[2019-06-05] MEDS ORDERED: ONDANSETRON 4 MG/2 ML INJ IV PRN (15:00)
[2019-06-05] MEDS: INSULIN REGULAR, HUMAN 100 UNITS/1 ML SUB-Q SCH ×2 (17:55→22:55)
[2019-06-05] MEDS: prednisoLONE ACETATE 1% OPHTH SUSP 5 ML OD SCH ×2 (18:02→21:31)
[2019-06-05] MEDS ORDERED: hydrALAZINE 20 MG/1 ML INJ IV ONE (18:25)
[2019-06-05] MEDS: amLODIPine 5 MG TAB PO SCH (18:35)
[2019-06-05] MEDS: COMBIGAN 0.2-0.5% OPHTH SOLN OD SCH (22:11)
[2019-06-05] MEDS ORDERED: hydrALAZINE 20 MG/1 ML INJ IV PRN (23:29)
[2019-06-06] MEDS ORDERED: ALUM-MAG HYDROXIDE-SIMETHICONE 200-200-20MG/5ML ORAL LIQD 30 ML PO ONE (00:04)
[2019-06-06 05:37] LABS: Basophils % (Auto) 0.3 % (0.0-1.8); Eosinophils # (Auto) 0.6 K/mm3 (0.0-0.4); Eosinophils % (Auto) 5.4 % (0.0-4.3); Hematocrit 34.8 % (35.5-45.6); Hemoglobin 11.4 gm/dl (11.8-15.2); Lymphocytes % (Auto) 9.1 % (13.4-35.0); Mean Corpuscular HGB Conc 33 % (32-34); Mean Corpuscular Volume 98 fl (84-94); Monocytes # (Auto) 0.8 K/mm3 (0.0-0.8); Monocytes % (Auto) 7.7 % (0.0-7.3); Platelet Count 206 K/mm3 (140-440); Red Blood Count 3.55 M/mm3 (3.65-5.03); Red Cell Distribution Width 18.9 % (13.2-15.2)
[2019-06-06 05:49] LABS: Calcium 8.8 mg/dL (8.4-10.2)
--- NOTE | 2019-06-06 08:20 | Discharge Summary ---
Providers - Providers Date of Admission: 06/05/19 11:26 Date of discharge: 06/06/19 Attending physician: JAMES PURI 06/05/19 10:48 Consult to Physician [CONS] Routine Comment: Consulting Provider: JOHNATHAN SCHWARTZ Physician Instructions: Reason For Exam: dialysis, hyperkalemia 06/05/19 17:59 Physical Therapy Evaluation and Treat [CONS] Routine Comment: Reason For Exam: Frequent Falls Mode of Transport?: Cane Weight bearing status?: Full wt bearing Assistive devices?: Yes: Cane Hospitalization Reason for admission: hyperkalemia Condition: Fair Hospital course: 73-year-old gentleman with medical history significant for hypertension, diabetes mellitus type 2, end-stage renal disease on hemodialysis via a right f orearm radiocephalic fistula at the [facility] on Wednesdays and Saturday reports he missed dialysis due to persistent diarrhea. Patient reports that he has had diarrhea for the past 3 years has had numerous endoscopic procedures. He takes Imodium on a daily basis. He missed dialysis sessions and was sent to the emergency room for evaluation. His labs in the emergency room were significant for potassium of 6.1. The patient was admitted with diagnosis of hyperkalemia and abdominal pain. KUB was unremarkable. Patient was seen by nephrology and underwent urgent hemodialysis with resolution of his hyperkalemia. The patient's abdominal pain also resolved. Dedicated discharge time 32 minutes. Disposition: -01 TO HOME OR SELFCARE Time spent for discharge: 32 - Discharge Diagnoses (1) Abdominal pain Status: Acute Qualifiers: Abdominal location: unspecified location Qualified Code(s): R10.9 - Unspecified abdominal pain (2) End-stage renal disease needing dialysis Status: Acute (3) Hyperkalemia Status: Acute Core Measure Documentation - Palliative Care Palliative Care/ Comfort Measures: Not Applicable - Core Measures Any of the following diagnoses?: none Exam - Constitutional Vitals: Temp Pulse Resp BP Pulse Ox 97.8 F 67 18 149/76 94 06/06/19 07:12 06/06/19 07:12 06/06/19 07:12 06/06/19 07:12 06/06/19 07:12 General appearance: Present: no acute distress, well-nourished - EENT Eyes: Present: PERRL ENT: hearing intact, clear oral mucosa - Neck Neck: Present: supple, normal ROM - Respiratory Respiratory effort: normal Respiratory: bilateral: CTA - Cardiovascular Heart Sounds: Present: S1 & S2. Absent: rub, click - Extremities Extremities: pulses symmetrical, No edema Peripheral Pulses: within normal limits - Abdominal General gastrointestinal: Present: soft, non-tender, non-distended, normal bowel sounds Male genitourinary: Present: normal - Integumentary Integumentary: Present: clear, warm, dry - Musculoskeletal Musculoskeletal: gait normal, strength equal bilaterally - Psychiatric Psychiatric: appropriate mood/affect, intact judgment & insight - Neurologic Neurologic: CNII-XII intact, moves all extremities Plan Activity: no restrictions Weight Bearing Status: Full Weight Bearing Diet: renal Follow up with: JOSE RODRIGUEZ [Other] - 3-5 Days
[2019-06-06] MEDS: INSULIN REGULAR, HUMAN 100 UNITS/1 ML SUB-Q SCH ×2 (08:27→11:30)
[2019-06-06] MEDS ORDERED: ENOXAPARIN 30 MG/0.3 ML INJ SUB-Q SCH (10:00)
[2019-06-06] MEDS: amLODIPine 5 MG TAB PO SCH (10:01)
[2019-06-06] MEDS: COMBIGAN 0.2-0.5% OPHTH SOLN OD SCH (10:03)
[2019-06-06] MEDS: prednisoLONE ACETATE 1% OPHTH SUSP 5 ML OD SCH (10:03)
[2019-06-06 13:48] VITALS: BP 163/89
== END 2019-06-06 13:00 | disposition home or self-care (01) ==
LOC: ED 08:44 → 2B-ACE 11:26
PROVIDERS: ADMIT Hospitalist; ATTEND Hospitalist
DX: I12.0 Hypertensive chronic kidney disease with stage 5 chronic kidney disease or end stage renal disease (principal); N18.6 End stage renal disease; E87.5 Hyperkalemia; E11.22 Type 2 diabetes mellitus with diabetic chronic kidney disease; M10.9 Gout, unspecified; K21.9 Gastro-esophageal reflux disease without esophagitis; G43.909 Migraine, unspecified, not intractable, without status migrainosus; Z86.718 Personal history of other venous thrombosis and embolism; Z98.890 Other specified postprocedural states
CPT/HCPCS: 36415; 74019; 80048; 80053; 80074; 82962; 85025; 87116; 93005; 93010; 96372; 96374; 99284; G0378; J0360; J1650; G0257; J1815

== ENCOUNTER 2019-11-30 09:23 | Emergency (ER) | payer MEDICARE ==
[2019-11-30] MEDS ORDERED: ONDANSETRON 4 MG/2 ML INJ IM ONE (10:01)
[2019-11-30] MEDS ORDERED: fentaNYL 100 MCG/2 ML INJ IM ONE (10:01)
--- NOTE | 2019-11-30 10:06 | Emergency Department Report ---
HPI - General Chief Complaint: Fall Time Seen by Provider: 11/30/19 09:51 - HPI HPI: Room 3 The patient is a 74-year-old male present with a chief complaint of head injury. The patient states this morning while in the shower he slipped and fell strikin g his head on the wall. Patient states he does not believe he lost consciousness. Patient has a large swelling to the left side of his head and gives his headache a score of 8/10. Patient denies nausea or vomiting. Patient denies any other pain ED Past Medical Hx - Past Medical History Previous Medical History?: Yes Hx Hypertension: Yes Hx Diabetes: Yes Hx Deep Vein Thrombosis: Yes (Right leg in 2001 and 2013) Hx GERD: Yes Hx Renal Disease: Yes (MWF) Hx Arthritis: Yes (gout) Hx Headaches / Migraines: Yes (MIGRAINES ) - Surgical History Past Surgical History?: Yes Additional Surgical History: FISTULA RIGHT WRIST. 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/2017 - Family History Family history: no significant - Social History Smoking Status: Former Smoker (None x3 years) Substance Use Type: Alcohol (Occasional) - Medications Home Medications: Home Medications Medication Instructions Recorded Confirmed Last Taken Type Furosemide [Lasix TAB] 40 mg PO BID 05/17/16 06/05/19 06/05/19 History Ranitidine HCl [Heartburn Relief] 150 mg PO BID 05/17/16 06/05/19 06/03/19 History allopurinoL [Zyloprim] 300 mg PO QDAY 05/17/16 06/05/19 06/05/19 History B Complex 11/Folic/C/Biot/Zinc 1 each PO QDAY 01/31/17 06/05/19 06/05/19 History [Dialyvite with Zinc Tablet] Sertraline [Zoloft] 50 mg PO QDAY 01/31/17 06/05/19 06/05/19 History Clopidogrel [Plavix] 75 mg PO QDAY 01/29/19 06/05/19 06/05/19 History Ergocalciferol (Vitamin D2) 2,000 unit PO DAILY 01/29/19 06/05/19 06/05/19 History [Vitamin D2] Pravastatin [Pravachol] 40 mg PO DAILY 01/29/19 06/05/19 06/05/19 History Pregabalin [Lyrica] 50 mg PO BID 01/29/19 06/05/19 06/04/19 History Metoprolol [Lopressor TAB] 50 mg PO BID #60 tablet 01/30/19 06/05/19 06/05/19 Rx amLODIPine 5 mg PO DAILY tablet 01/30/19 06/05/19 06/05/19 Rx Brimonidine/Timolol 0.2-0.5% 1 drops OD Q12H 06/05/19 06/05/19 06/05/19 08:00 History [Combigan 0.2-0.5%] prednisoLONE ACETATE 1% [Pred 1 drop OD QID 06/05/19 06/05/19 06/05/19 08:00 History Forte 1%] HYDROcodone/APAP 5-325 [Reeder 1 - 2 each PO Q6HR PRN #10 tablet 11/30/19 Unknown Rx 5/325] Ibuprofen [Motrin 800 MG tab] 800 mg PO Q8HR PRN #10 tablet 11/30/19 Unknown Rx ED Review of Systems ROS: Stated complaint: FALL Other details as noted in HPI Constitutional: no symptoms reported Eyes: denies: eye pain ENT: denies: throat pain Respiratory: no symptoms reported Cardiovascular: denies: chest pain Endocrine: no symptoms reported Musculoskeletal: arthralgia Neurological: headache Physical Exam - Physical Exam Vital Signs: Vital Signs 11/30/19 09:45 Temperature 97.6 F Pulse Rate 56 L Respiratory 16 Rate Blood Pressure 162/73 O2 Sat by Pulse 100 Oximetry Physical Exam: GENERAL: The patient is well-developed well-nourished male lying on stretcher with obvious swelling to left side of the head. [] HEENT: Normocephalic. Large pome with overlying abrasion to the left frontotemporal region. Extraocular motions are intact. Patient has moist mucous membranes. NECK: Supple. There is mid C-spine tenderness to palpation CHEST/LUNGS: There is no respiratory distress noted. HEART/CARDIOVASCULAR: Regular. There is no tachycardia. There is no gallop rub or murmur. ABDOMEN: Abdomen is soft, nontender. Patient has normal bowel sounds. There is no abdominal distention. SKIN: There is no rash. There is no edema. There is no diaphoresis. NEURO: The patient is awake, alert, and oriented. The patient is cooperative. The patient has no focal neurologic deficits. The patient has normal speech. Cranial nerves II through XII grossly intact MUSCULOSKELETAL: There is tenderness to the cervical spine ED Course Vital Signs 11/30/19 09:45 Temperature 97.6 F Pulse Rate 56 L Respiratory 16 Rate Blood Pressure 162/73 O2 Sat by Pulse 100 Oximetry ED Medical Decision Making - Radiology Data Radiology results: report reviewed (CT head, CT cervical spine), image reviewed (CT head, CT cervical spine) Findings [facility] [address] [place] [address] Cat Scan Report Signed Patient: MARCE CABEZAS MR#: [id number] : 1945 Acct:[id number] Age/Sex: 74 / M ADM Date: 11/30/19 Loc: ED Attending Dr: Ordering Physician: MONIQUE CYR MD Date of Service: 11/30/19 Procedure(s): CT head/brain wo con Accession Number(s): [id number] cc: MONIQUE CYR MD CT HEAD WITHOUT CONTRAST INDICATION / CLINICAL INFORMATION: Trauma. Patient fell sustaining head injury. TECHNIQUE: All CT scans at this location are performed using CT dose reduction for ALARA by means of automated exposure control. COMPARISON: Head CT 08/12/2018 FINDINGS: HEMORRHAGE: No evidence of intracranial hemorrhage or extra-axial fluid collection. EXTRA-AXIAL SPACES: Cortical sulci and sylvian fissures are are within normal limits for the ernestine ent's age of 74 years. Basilar cisterns have an unremarkable appearance. VENTRICULAR SYSTEM: The third and lateral ventricles within normal limits for size and configuration this 74-year-old individual. CEREBRAL PARENCHYMA: Periventricular and deep white matter lucency is observed. This is probably secondary to microvascular ischemic change. There is no indication of recent infarction. No areas of encephalomalacia are identified. MIDLINE SHIFT OR HERNIATION: There is no mass effect. CEREBELLUM / BRAINSTEM: Brainstem and cerebellum have an unremarkable appearance. INTRACRANIAL VESSELS:Calcified atherosclerotic plaque is present along the course of the cavernous segments of both internal carotid arteries. Similar findings are seen in the mid basilar artery. ORBITS: Status post bilateral cataract surgery. No additional orbital abnormalities are identified. SOFT TISSUES of HEAD: There is a large left parietal scalp hematoma. CALVARIUM: Evaluation of bone windows reveals no abnormalities. Incidental note is made of hyperostosis frontalis interna. PARANASAL SINUSES / MASTOID AIR CELLS: Paranasal sinuses are free from inflammatory mucosal disease. Mastoid air cells are normally pneumatized. IMPRESSION: 1. Large left parietal scalp hematoma. 2. No acute intracranial abnormality. Signer Name: Sukhi Valdes MD Signed: 11/30/2019 12:12 PM Workstation Name: [id number] Transcribed By: Dictated By: Sukhi Valdes MD Electronically Authenticated By: Sukhi Valdes MD Signed Date/Time: 11/30/19 1212 DD/ 1208 TD/TT: - Differential Diagnosis Close head injury, intracranial hemorrhage, skull fracture, cervical fractu Critical care attestation.: If time is entered above; I have spent that time in minutes in the direct care of this critically ill patient, excluding procedure time. ED Disposition Clinical Impression: Closed head injury, Cervical strain, acute Disposition: DC-01 TO HOME OR SELFCARE Is pt being admited?: No Does the pt Need Aspirin: No Condition: Stable Additional Instructions: Return to the emergency department should you develop worsening symptoms, inability to tolerate food or liquids, high fever or any other concerns Prescriptions: Ibuprofen [Motrin 800 MG tab] 800 mg PO Q8HR PRN #10 tablet PRN Reason: Pain, Moderate (4-6) HYDROcodone/APAP 5-325 [Reeder 5/325] 1 - 2 each PO Q6HR PRN #10 tablet PRN Reason: Pain Referrals: [facility] MD BISHOP [Referring] - 3-5 Days PRIMARY CAREMD [Referring] - 3-5 Days Time of Disposition: 12:33
--- NOTE | 2019-11-30 12:17 | Cat Scan Report ---
CT HEAD WITHOUT CONTRAST INDICATION / CLINICAL INFORMATION: Trauma. Patient fell sustaining head injury. TECHNIQUE: All CT scans at this location are performed using CT dose reduction for ALARA by means of automated e xposure control. COMPARISON: Head CT 08/12/2018 FINDINGS: HEMORRHAGE: No evidence of intracranial hemorrhage or extra-axial fluid collection. EXTRA-AXIAL SPACES: Cortical sulci and sylvian fissures are are within normal limits for the patient' s age of 74 years. Basilar cisterns have an unremarkable appearance. VENTRICULAR SYSTEM: The third and lateral ventricles within normal limits for size and configuration this 74-year-old individual. CEREBRAL PARENCHYMA: Periventricular and deep white matter lucency is ob served. This is probably secondary to microvascular ischemic change. There is no indication of recent infarction. No areas of encephalomalacia are identified. MIDLINE SHIFT OR HERNIATION: There is no mass effect. CEREBELLUM / BRAINSTEM: Brainstem and cerebellum have an unremarkable appearance. INTRACRANIAL VESSELS:Calcified atherosclerotic plaque is present along the course of the cavernous se gments of both internal carotid arteries. Similar findings are seen in the mid basilar artery. ORBITS: Status post bilateral cataract surgery. No additional orbital abnormalities are identified. SOFT TISSUES of HEAD: There is a large left parietal scalp hematoma. CALVARIUM: Evaluation of bone windows reveals no abnormalities. Incidental note is made of hyperostos is frontalis interna. PARANASAL SINUSES / MASTOID AIR CELLS: Paranasal sinuses are free from inflammatory mucosal disease. Mastoid air cells are normally pneumatized. IMPRESSION: 1. Large left parietal scalp hematoma. 2. No acute intracranial abnormality. Signer Name: Sukhi Valdes MD Signed: 11/30/2019 12:12 PM Workstation Name: [id number]
--- NOTE | 2019-11-30 12:24 | Cat Scan Report ---
CT CERVICAL SPINE WITHOUT CONTRAST INDICATION / CLINICAL INFORMATION: Trauma. Patient fell sustaining neck injury. Neck pain. TECHNIQUE: Axial CT images were obtained through the cervical spine. Sagittal and coronal reformatted images wer e produced. All CT scans at this location are performed using CT dose reduction for ALARA by means of automated exposure control. COMPARISON: None available. FINDINGS: There is no indication of fracture or traumatic subluxation. ALIGNMENT: Patient's head is tilted towards the left time of this study. There is mild loss of the no rmal cervical lordosis. No additional abnormalities of alignment are identified. VERTEBRAE: A vertebral pneumatocele cysts are incidentally identified at inferior endplate C3 and inf erior endplate C4. DISC SPACES: Advanced disc desiccation is noted throughout most of the cervical region with loss of d isc height and osteophyte formation and prominent findings at most levels. INDIVIDUAL LEVEL ANALYSIS: C2-3:No abnormality. C3-4: Loss of disc height and disc vacuum phenomena are noted. Anterior and posterior osteophyte form ation is observed. Facet and uncovertebral arthritic changes contribute to severe bilateral foraminal stenosis at the C4 nerve root level. Central spinal canal is adequate in size. C4-5: Loss of disc height and disc vacuum phenomena are noted. Prominent anterior osteophyte and mild posterior osteophyte is observed. Facet and uncovertebral arthropathy contribute to severe bilateral foraminal stenosis. Central spinal canal is adequately maintained. C5-6: Loss of disc height and disc vacuum phenomena are noted. Posterior osteophyte flattens the thec al sac. This lateralizes to the left where left lateral recess stenosis is evident. Central spinal ca nal is mildly narrowed. Uncovertebral arthropathy contributes to severe bilateral foraminal stenosis at the C6 nerve root level. C6-7: Loss of disc height is a prominent finding. Posterior osteophyte lateralizes to the left contri buting to left lateral recess stenosis. Central spinal canal is mildly narrowed. Uncovertebral arthro leila and facet arthritic change contribute to severe left-sided and moderate right-sided foraminal s tenosis at the C7 nerve root level. C7-T1:No abnormality. CRANIOCERVICAL JUNCTION:No significant abnormality. SPINAL CANAL: Central spinal canal is narrowed at the C5-6 and C6-7 levels. PARASPINAL SOFT TISSUES: No significant abnormality. LUNG APICES: No significant abnormality of visualized lungs. Aircraft additional findings: Calcified atherosclerotic plaque is present at both carotid bifurcations. IMPRESSION: 1. No indication of fracture or traumatic subluxation. 2. Widespread cervical spondylosis with multifocal neuroforaminal narrowing. 3. Left lateral recess stenosis C5-6 and C6-7.. Signer Name: Sukhi Valdes MD Signed: 11/30/2019 12:19 PM Workstation Name: [id number]
[2019-11-30] MEDS ORDERED: NEOMY 3.5 MG/BACIT 400 UNITS/POLY B 5000 UNITS OINT 15 GM TP ONE (12:30)
[2019-11-30] MEDS ORDERED: NEOMY 3.5 MG/BACIT 400 UNITS/POLY B 5000 UNITS/GM OINT PACKET TP ONE (13:03)
[2019-11-30 13:37] VITALS: BP 156/69
== END 2019-11-30 12:50 | disposition home or self-care (01) ==
LOC: ED 09:23
DX: S16.1XXA Strain of muscle, fascia and tendon at neck level, initial encounter (principal); S09.90XA Unspecified injury of head, initial encounter; I10 Essential (primary) hypertension; E11.9 Type 2 diabetes mellitus without complications; K21.9 Gastro-esophageal reflux disease without esophagitis; M19.90 Unspecified osteoarthritis, unspecified site; G43.909 Migraine, unspecified, not intractable, without status migrainosus; Z87.891 Personal history of nicotine dependence
CPT/HCPCS: 70450; 72125; 96372; 99284; J2405; J3010; A6250

== ENCOUNTER 2020-02-17 15:09 | Emergency (ER) | payer MEDICARE ==
[2020-02-17] MEDS ORDERED: ASPIRIN 81 MG TAB CHEW PO ONE (16:26)
--- NOTE | 2020-02-17 16:32 | Emergency Department Report ---
ED Palpitations HPI - General Chief Complaint: Arrhythmia/Palpitations Stated Complaint: FAST HEART RATE Time Seen by Provider: 02/17/20 16:25 Source: patient Mode of arrival: Stretcher Limitations: No Limitations - History of Present Illness Initial Comments: Patient is 74 years old male with history of hypertension, diabetes, end-stage renal disease on hemodialysis. Patient brought to the emergency room via EMS from [facility]. Patient stated that he went for dialysis today and before dialysis started patient started having palpitation and they found that his heart rate is 145. EKG showed a wide complex tachycardia. Patient rhythm converted to sinus rhythm by its own. Patient is currently with a heart rate of 70 bpm showing sinus rhythm. Patient denied any chest pain, shortness of breath, nausea or vomiting weakness numbness or tingling sensation. Patient stated that he feel like he is back to his normal. Patient stated that he had one episode like this 1 year ago and evaluated by self. MD Complaint: rapid heart beat, "heart racing", palpitations -: Sudden Context: occured during rest Associated Symptoms: denies other symptoms - Related Data Home Medications Medication Instructions Recorded Confirmed Last Taken allopurinoL [Zyloprim] 300 mg PO QDAY 05/17/16 12/09/19 12/08/19 Sertraline [Zoloft] 50 mg PO QDAY 01/31/17 12/09/19 12/08/19 Clopidogrel [Plavix] 75 mg PO QDAY 01/29/19 12/09/19 12/08/19 Ergocalciferol (Vitamin D2) 2,000 unit PO DAILY 01/29/19 12/09/19 12/08/19 [Vitamin D2] Pravastatin [Pravachol] 40 mg PO DAILY 01/29/19 12/09/19 12/08/19 Pregabalin [Lyrica] 50 mg PO BID 01/29/19 12/09/19 12/08/19 Brimonidine/Timolol 0.2-0.5% 1 drops OD Q12H 06/05/19 12/09/19 12/08/19 [Combigan 0.2-0.5%] prednisoLONE ACETATE 1% [Pred 1 drop OD QID 06/05/19 12/09/19 12/08/19 Forte 1%] Previous Rx's Medication Instructions Recorded Last Taken Type Ibuprofen [Motrin 800 MG tab] 800 mg PO Q8HR PRN #10 tablet 11/30/19 12/08/19 Rx amLODIPine 10 mg PO DAILY #30 tab 12/11/19 Unknown Rx Allergies Allergy/AdvReac Type Severity Reaction Status Date / Time atorvastatin calcium Allergy muscle Verified 02/17/20 15:44 [From Lipitor] stiffness ED Review of Systems ROS: Stated complaint: FAST HEART RATE Other details as noted in HPI Comment: All other systems reviewed and negative Constitutional: denies: chills, fever Respiratory: denies: cough, shortness of breath, SOB with exertion, wheezing Cardiovascular: palpitations (Gone now). denies: chest pain Gastrointestinal: denies: abdominal pain, nausea, vomiting Musculoskeletal: denies: back pain Neurological: denies: headache, weakness, numbness, paresthesias, confusion, abnormal gait ED Past Medical Hx - Past Medical History Hx Hypertension: Yes Hx Diabetes: Yes Hx Deep Vein Thrombosis: Yes (Right leg in 2001 and 2013) Hx GERD: Yes Hx Renal Disease: Yes (MWF) Hx Arthritis: Yes (gout) Hx Headaches / Migraines: Yes (MIGRAINES ) Hx HIV: No Additional medical history: neuropathy, gout - Surgical History Additional Surgical History: FISTULA RIGHT WRIST. 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/2017 - Social History Smoking Status: Never Smoker Substance Use Type: Alcohol, Marijuana - Medications Home Medications: Home Medications Medication Instructions Recorded Confirmed Last Taken Type allopurinoL [Zyloprim] 300 mg PO QDAY 05/17/16 12/09/19 12/08/19 History Sertraline [Zoloft] 50 mg PO QDAY 01/31/17 12/09/19 12/08/19 History Clopidogrel [Plavix] 75 mg PO QDAY 01/29/19 12/09/19 12/08/19 History Ergocalciferol (Vitamin D2) 2,000 unit PO DAILY 01/29/19 12/09/19 12/08/19 History [Vitamin D2] Pravastatin [Pravachol] 40 mg PO DAILY 01/29/19 12/09/19 12/08/19 History Pregabalin [Lyrica] 50 mg PO BID 01/29/19 12/09/19 12/08/19 History Brimonidine/Timolol 0.2-0.5% 1 drops OD Q12H 06/05/19 12/09/19 12/08/19 History [Combigan 0.2-0.5%] prednisoLONE ACETATE 1% [Pred 1 drop OD QID 06/05/19 12/09/19 12/08/19 History Forte 1%] Ibuprofen [Motrin 800 MG tab] 800 mg PO Q8HR PRN #10 tablet 11/30/19 12/09/19 12/08/19 Rx amLODIPine 10 mg PO DAILY #30 tab 12/11/19 Unknown Rx ED Physical Exam - General Limitations: No Limitations General appearance: alert, in no apparent distress - Head Head exam: Present: atraumatic, normocephalic, normal inspection - Eye Eye exam: Present: normal appearance - ENT ENT exam: Present: normal exam, normal orophraynx, mucous membranes moist - Neck Neck exam: Present: normal inspection, full ROM. Absent: tenderness, meningismus, lymphadenopathy, thyromegaly - Respiratory Respiratory exam: Present: normal lung sounds bilaterally - Cardiovascular Cardiovascular Exam: Present: regular rate, normal rhythm, normal heart sounds - GI/Abdominal GI/Abdominal exam: Present: soft, normal bowel sounds. Absent: distended, tenderness, guarding, rebound, rigid, organomegaly, mass, bruit, pulsatile mass, hernia - Extremities Exam Extremities exam: Present: normal inspection, full ROM, normal capillary refill. Absent: pedal edema, calf tenderness - Back Exam Back exam: Present: normal inspection, full ROM. Absent: CVA tenderness (R), CVA tenderness (L) - Neurological Exam Neurological exam: Present: alert, oriented X3, CN II-XII intact, normal gait, reflexes normal. Absent: motor sensory deficit - Psychiatric Psychiatric exam: Present: normal mood - Skin Skin exam: Present: warm, intact, normal color ED Course Vital Signs 02/17/20 02/17/20 02/17/20 15:44 16:16 16:30 Temperature 97.7 F Pulse Rate 72 70 68 Respiratory 22 16 12 Rate Blood Pressure 150/80 Blood Pressure [Left] O2 Sat by Pulse 97 100 100 Oximetry 02/17/20 02/17/20 02/17/20 16:46 17:00 17:16 Temperature Pulse Rate 68 65 63 Respiratory 12 12 10 L Rate Blood Pressure Blood Pressure [Left] O2 Sat by Pulse 96 100 98 Oximetry 02/17/20 02/17/2020 17:30 17:46 18:15 Temperature Pulse Rate 61 61 62 Respiratory 7 L 10 L 18 Rate Blood Pressure Blood Pressure 129/75 [Left] O2 Sat by Pulse 100 100 100 Oximetry ED Medical Decision Making - Lab Data Result diagrams: 02/17/20 16:39 02/17/20 16:39 - EKG Data -: EKG Interpreted by Me EKG shows normal: sinus rhythm Rate: normal - EKG Data Interpretation: no acute changes - Radiology Data Radiology results: report reviewed - Medical Decision Making Patient is 74 years old male with history of hypertension, diabetes, end-stage renal disease on hemodialysis. Patient brought to the emergency room via EMS from [facility]. Patient stated that he went for dialysis today and before dialysis started patient started having palpitation and they found that his heart rate is 145. EKG showed a wide complex tachycardia. Patient rhythm converted to sinus rhythm by its own. Patient is currently with a heart rate of 70 bpm showing sinus rhythm. Patient denied any chest pain, shortness of breath, nausea or vomiting weakness numbness or tingling sensation. Patient stated that he feel like he is back to his normal. Patient stated that he had one episode like this 1 year ago and evaluated by self. Patient remain asymptomatic in the emergency room. EKG showed sinus rhythm with a heart rate of 70 bpm. Labs reviewed and showed potassium of 5.2 and troponin of 0.26 however patient has a chronic elevation of his troponin. Patient still denying any chest pain or shortness of breath. I discussed with the patient the need to be admitted to the hospital for observation and further management. Patient declined admission and stated that he has an appointment tomorrow for MRI and he does not want to be admitted. Patient is alert, oriented x3 and able to make a sound decision there is no indication for involuntary hold. Patient informed that he can return to the ER or go to another ER if he develop any new symptoms. Patient understood the instruction very well. Critical care attestation.: If time is entered above; I have spent that time in minutes in the direct care of this critically ill patient, excluding procedure time. ED Disposition Clinical Impression: Palpitation, ESRD (end stage renal disease) on dialysis, SVT (supraventricular tachycardia) Disposition: [id number]-07 LEFT AGAINST MED ADVICE Is pt being admited?: No Condition: Stable Instructions: Chronic Kidney Disease (ED), Palpitations (ED) Referrals: JOSE RODRIGUEZ MD [Primary Care Provider] - 3-5 Days
--- NOTE | 2020-02-17 16:50 | XRay Report ---
CHEST 1 VIEW INDICATION: Dysrhythmia. COMPARISON: 12/09/2019. FINDINGS: Support devices: None. Heart: Moderate cardiomegaly. Lungs/Pleura: No acute air space or interstitial disease. Additional findings: None. IMPRESSION: Moderate cardiomegaly. Signer Name: Doug Kilpatrick MD Signed: 02/17/2020 4:45 PM Workstation Name: [id number]
[2020-02-17 17:23] LABS: Basophils % (Auto) 0.3 % (0.0-1.8); Eosinophils # (Auto) 0.5 K/mm3 (0.0-0.4); Eosinophils % (Auto) 6.4 % (0.0-4.3); Hematocrit 34.6 % (35.5-45.6); Hemoglobin 11.1 gm/dl (11.8-15.2); Lymphocytes # (Auto) 1.3 K/mm3 (1.2-5.4); Lymphocytes % (Auto) 16.5 % (13.4-35.0); Mean Corpuscular HGB Conc 32 % (32-34); Mean Corpuscular Volume 102 fl (84-94); Monocytes # (Auto) 0.8 K/mm3 (0.0-0.8); Monocytes % (Auto) 10.3 % (0.0-7.3); Platelet Count 161 K/mm3 (140-440); Red Blood Count 3.41 M/mm3 (3.65-5.03)
[2020-02-17 17:36] LABS: Calcium 9.2 mg/dL (8.4-10.2)
[2020-02-17 17:53] LABS: Chol/HDL Ratio 2.29 %
[2020-02-17 18:40] LABS: INR 1.09 (0.87-1.13)
[2020-02-17 18:41] LABS: Partial Thromboplastin Time 29.1 Sec. (24.2-36.6)
[2020-02-17 19:29] VITALS: BP 118/82
== END 2020-02-17 20:02 | disposition left against medical advice (07) ==
LOC: ED 15:09
DX: R00.2 Palpitations (principal); E11.22 Type 2 diabetes mellitus with diabetic chronic kidney disease; I12.0 Hypertensive chronic kidney disease with stage 5 chronic kidney disease or end stage renal disease; N18.6 End stage renal disease; Z99.2 Dependence on renal dialysis; M19.90 Unspecified osteoarthritis, unspecified site; G43.909 Migraine, unspecified, not intractable, without status migrainosus; K21.9 Gastro-esophageal reflux disease without esophagitis; Z79.899 Other long term (current) drug therapy; Z88.8 Allergy status to other drugs, medicaments and biological substances
CPT/HCPCS: 36415; 71045; 80048; 80061; 83735; 84484; 85025; 85610; 85730; 93005